=== PATIENT | female | born 1950 | race Caucasian/White ===

== ENCOUNTER 2016-06-02 12:32 | Inpatient (IN) | payer OTHER ==
[~2016-06-02] VITALS: Ht 160 cm; Wt 102.5 kg
[~2016-06-02 12:32] MED LIST: IBUP400T22 PO; MELO-174 PO; METF-382 PO; NAPR-260 PO; OMEP40CA3 PO; SOLI10TA5 PO; ULT50 PO
[2016-06-02] MEDS ORDERED: ONDANSETRON 4 MG INJ IV STA (17:59)
[2016-06-02] MEDS ORDERED: morphine 4 MG/ML VIAL IV STA (17:59)
[2016-06-02] MEDS ORDERED: ACETAMINOPHEN 325 MG TAB PO STA (17:59)
[2016-06-02] MEDS ORDERED: CEFEPIME 2GM/50 ML (PMX) 50 ML IVPB STA (17:59)
[2016-06-02] MEDS ORDERED: VANCOMYCIN 1 GM (PMX) 250 ML IVPB ONE (18:00)
[2016-06-02] MEDS ORDERED: SOD CHLORIDE 0.9% 1,000 ML IV ONE (18:30)
--- NOTE | 2016-06-02 18:32 | RADRPT ---
PROCEDURE: XR Chest. CLINICAL INDICATION: Patient experiencing possible Sepsis TECHNIQUE: Single AP portable chest COMPARISON: 04/24/2014 FINDINGS: Mild cardiomegaly. Tortuosity of the thoracic aorta. Large hiatal hernia. Atherosclerotic aortic ca lcification. The lungs are clear without pleural effusion or focal consolidation. No pneumothorax. The osseous structures and soft tissues are unremarkable. IMPRESSION: Cardiomegaly. Large hiatal hernia. Atherosclerotic disease of the aorta. RPTAT:AAJJ Michael Ureña Physician Date Time Electronically viewed and signed by Physician León on 06/02/2016 18:32 ALESSANDRO/
--- NOTE | 2016-06-02 18:42 | RADRPT ---
PROCEDURE: Ultrasound of the right lower extremity venous system. CLINICAL INDICATION: Right leg pain and swelling, deep venous thrombosis TECHNIQUE: Milan scale with and without compression, color doppler, spectral doppler of the venous system of the right lower extremity was performed. Venous augmentation maneuvers were utilized. COMPARISON: No prior studies are available for comparison. FINDINGS: Common femoral vein: Patent. Superficial femoral vein: Patent. Popliteal vein: Patent. Calf veins: Patent. No soft tissue abnormalities are identified. IMPRESSION: No evidence of a deep vein thrombosis within the right lower extremity. RPTAT: AADD .James Hernández MD, MD Date Time Electronically viewed and signed by .James Hernández MD, on 06/02/2016 18:42 .B/
[2016-06-02 18:43] LABS: BASOPHILS % 0.3 % (0.0-2.0); EOSINOPHILS # 0.1 10^3/ul (0.0-0.5); EOSINOPHILS % 1.4 % (0.0-7.0); HEMATOCRIT 41.1 % (37.0-47.0); HEMOGLOBIN 13.8 g/dl (12.0-16.0); LYMPHOCYTES # 1.6 10^3/ul (0.8-2.9); LYMPHOCYTES % 22.6 % (15.0-51.0); MEAN CORPUSCULAR HEMOGLOBIN 31.7 pg (29.0-33.0); MEAN CORPUSCULAR HGB CONC 33.5 g/dl (32.0-37.0); MEAN CORPUSCULAR VOLUME 94.8 fl (82.0-101.0); MEAN PLATELET VOLUME 7.2 fl (7.4-10.4); MONOCYTE # 0.6 10^3/ul (0.3-0.9); MONOCYTES % 7.9 % (0.0-11.0); NEUTROPHIL # 4.7 10^3/ul (1.6-7.5); NEUTROPHILS % 67.8 % (39.0-77.0); PLATELET COUNT 291 10^3/UL (140-440); RED BLOOD COUNT 4.34 10^6/ul (4.20-5.40); RED CELL DISTRIBUTION WIDTH 13.7 % (11.5-14.5)
[2016-06-02 18:46] LABS: CONDITION 1
[2016-06-02 18:52] LABS: INR 0.93; PROTIME 12.5 Sec (12.2-14.2)
[2016-06-02 18:53] LABS: PARTIAL THROMBOPLASTIN TIME 41.3 Sec (25.0-35.0)
[2016-06-02 18:56] LABS: ALBUMIN 4.5 g/dl (3.3-4.9)
[2016-06-02 18:57] LABS: CHLORIDE 96 mmol/L (97-110); SODIUM 140 mmol/L (135-144)
[2016-06-02 18:59] LABS: ANION GAP 20 (8-16); ASPARTATE AMINO TRANSFERASE 20 IU/L (15-46); BILIRUBIN,INDIRECT 0.1 mg/dl (0-1.1); BILIRUBIN,TOTAL 0.1 mg/dl (0.2-1.3); CARBON DIOXIDE 28 mmol/L (21-31); CREATININE 0.74 mg/dl (0.44-1.00)
[2016-06-02 19:00] LABS: ALANINE AMINOTRANSFERASE 24 IU/L (13-69); ALBUMIN/GLOBULIN RATIO 1.02; ALKALINE PHOSPHATASE 126 IU/L (42-121); BLOOD UREA NITROGEN 12 mg/dl (7-20); CALCIUM 9.4 mg/dl (8.4-10.2); GLUCOSE 160 mg/dl (70-220); TOTAL PROTEIN 8.9 g/dl (6.1-8.1)
[2016-06-02] MEDS ORDERED: IBUP-1542 PO (19:11)
[2016-06-02] MEDS ORDERED: BACTDS PO (19:11)
[2016-06-02] MEDS ORDERED: CALC-780 PO (19:12)
[2016-06-02 19:13] LABS: TROPONIN-I < 0.010 ng/ml (0.00-0.12)
[2016-06-02] MEDS ORDERED: CYCL1DRO BOTH EYES (19:13)
--- NOTE | 2016-06-02 19:20 | ERA ---
ER Documentation Chief Complaint Date/Time DATE: 06/02/16 TIME: 19:15 Chief Complaint bilateral knee pain from a fall 2 mos ago. lower leg redness HPI Patient is a 65-year-old female with diabetes who reports right lower extremity pain with redness and swelling for over a month. She states that she has been on antibiotics for 2 courses without any improvement or resolution of the redness and swelling. She states that she was told by her primary care physician if she took this last round of antibiotics and the redness did not resolve that she needed to come to the emergency department to be hospitalized. She states that her leg is extremely painful to touch and it feels hot. She says she has chills at night but has not taken her temperature. Her blood sugars have not been very well controlled. She says this all started after she fell about 2 months ago but she has not had any recurrent injuries to the leg. She denies any other symptoms such as chest pain, shortness of breath, coughing , congestion, abdominal pain, nausea, vomiting, diarrhea. ROS All systems reviewed and are negative except as per history of present illness. Medications Home Meds Reported Medications Cyclosporine (RESTASIS) 1 Each Droperette, 1 DROP BOTH EYES Q12, #1 BOX 06/02/16 Calcium Carbonate/Vitamin D3 (Calcium 600 + Vit D3 400 Tab) 1 Each Tablet, 1 EACH PO BID, TAB 06/02/16 Sulfamethoxazole-Trimethoprim* (Bactrim* DS) 800-160 Mg Tab, 1 TAB PO BID, #20 TAB 06/02/16 Ibuprofen* (Ibuprofen*) 600 Mg Tablet, 600 MG PO Q6H, TAB 06/02/16 Metformin Hcl* (Metformin Hcl*) 500 Mg Tablet, 500 MG PO BID WITH MEALS, TAB 04/23/14 Omeprazole* (Prilosec*) 40 Mg Capsule.dr, 40 MG PO DAILY AC MEAL, CAP 04/23/14 Solifenacin* (Vesicare*) 10 Mg Tablet, 10 MG PO DAILY, TAB 04/23/14 Discontinued Reported Medications Ibuprofen* (Ibuprofen*) 400 Mg Tablet, 400 MG PO Q4-6 HOURS Y for PAIN, TAB 04/23/14 Meloxicam* (Mobic*) 7.5 Mg Tab, 7.5 MG PO DAILY, TAB 04/23/14 Discontinued Scripts Naproxen* (Naprosyn*) 500 Mg Tablet, 500 MG PO BID Y for PAIN AND/OR INFLAMMATION, #30 TAB Prov:JACQUELYN KINSEY PA-C 04/09/16 Tramadol HCl (Tramadol HCl) 50 Mg Tablet, 50 MG PO Q4 Y for PAIN, #20 TAB Prov:CAROLJACQUELYN Choi PA-C 04/09/16 Allergies Allergies: Coded Allergies: No Known Drug Allergies (Verified Allergy, Unknown, 06/02/16) PMhx/Soc History of Surgery: Yes (, previous knee surgery) Anesthesia Reaction: No Hx Neurological Disorder: No Hx Respiratory Disorders: No Hx Cardiac Disorders: No Hx Psychiatric Problems: No Hx Miscellaneous Medical Probl: No Hx Alcohol Use: No Hx Substance Use: No Hx Tobacco Use: No Smoking Status: Never smoker FmHx Family History: diabetes Physical Exam Vitals Vital Signs Date Time Temp Pulse Resp B/P Pulse Ox O2 Delivery O2 Flow Rate FiO2 06/02/16 12:35 99.9 126 22 117/83 96 Physical Exam Const: Well-developed obese female sitting in the bed in no acute distress Head: Atraumatic normocephalic Eyes: Normal Conjunctiva ENT: Normal External Ears, Nose and Mouth. Neck: Full range of motion..~ No meningismus. Resp: Clear to auscultation bilaterally Cardio: Regular rate and rhythm, no murmurs Abd: Soft, non tender, non distended. Normal bowel sounds Skin: No petechiae or rashes, right lower extremity demonstrates erythema, warmth, and tenderness to palpation consistent with cellulitis. Back: No midline or flank tenderness Ext: No cyanosis, or mild edema of the right lower extremity noted Neur: Awake and alert Psych: Normal Mood and Affect Result Diagram: 06/02/16 1835 06/02/16 183 Results 24 hrs Laboratory Tests Test 06/02/16 18:35 Activated Partial Thromboplast Time 41.3Sec Alanine Aminotransferase (ALT/SGPT) 24IU/L Albumin 4.5g/dl Albumin/Globulin Ratio 1.02 Alkaline Phosphatase 126IU/L Anion Gap 20 Aspartate Amino Transf (AST/SGOT) 20IU/L Basophils # 0.010^3/ul Basophils % 0.3% Blood Morphology Comment Blood Urea Nitrogen 12mg/dl Calcium Level 9.4mg/dl Carbon Dioxide Level 28mmol/L Chloride Level 96mmol/L Creatinine 0.74mg/dl Direct Bilirubin 0.00mg/dl Eosinophils # 0.110^3/ul Eosinophils % 1.4% Globulin 4.40g/dl Glucose Level 160mg/dl Hematocrit 41.1% Hemoglobin 13.8g/dl INR International Normalized Ratio 0.93 Indirect Bilirubin 0.1mg/dl Lactic Acid Level 3.3mmol/L Lymphocytes # 1.610^3/ul Lymphocytes % 22.6% Mean Corpuscular Hemoglobin 31.7pg Mean Corpuscular Hemoglobin Concent 33.5g/dl Mean Corpuscular Volume 94.8fl Mean Platelet Volume 7.2fl Monocytes # 0.610^3/ul Monocytes % 7.9% Neutrophils # 4.710^3/ul Neutrophils % 67.8% Nucleated Red Blood Cells # 0.010^3/ul Nucleated Red Blood Cells % 0.0/100WBC Platelet Count 33674^3/UL Potassium Level 4.0mmol/L Prothrombin Time 12.5Sec Prothrombin Time Ratio 1.0 Red Blood Count 4.3410^6/ul Red Cell Distribution Width 13.7% Sodium Level 140mmol/L Total Bilirubin 0.1mg/dl Total Protein 8.9g/dl Troponin I < 0.010ng/ml White Blood Count 7.010^3/ul Current Medications Medications (Trade) Dose Ordered Sig/[place] Route PRN Reason Start Time Stop Time Status Last Admin Dose Admin Acetaminophen 650 mg 650 mg ONCE STAT PO 06/02/16 17:59 06/02/16 18:03 DC 06/02/16 19:13 Cefepime HCl 50 ml @ 100 mls/hr ONCE STAT IVPB 06/02/16 17:59 06/02/16 18:28 DC 06/02/16 19:04 Vancomycin HCl (Vancocin) 250 ml @ 125 mls/hr ONCE ONCE IVPB 06/02/16 18:00 06/02/16 19:59 DC 06/02/16 19:15 Morphine Sulfate (morphine) 4 mg ONCE STAT IV 06/02/16 17:59 06/02/16 18:03 DC 06/02/16 18:46 Ondansetron HCl 4 mg 4 mg ONCE STAT IV 06/02/16 17:59 06/02/16 18:03 DC 06/02/16 18:45 Sodium Chloride (NS) 1,000 ml @ 1,000 mls/hr Q1H ONCE IV 06/02/16 18:30 06/02/16 19:29 DC 06/02/16 18:52 Diphenhydramine HCl (Benadryl) 25 mg ONCE ONCE IV 06/02/16 19:30 06/02/16 19:31 DC 06/02/16 19:19 Ondansetron HCl (Zofran Inj) 4 mg BRIDGE ORDER PRN IV NAUSEA AND/OR VOMITING 06/02/16 20:00 06/03/16 19:59 Acetaminophen (Tylenol Tab) 650 mg ER BRIDGE PRN PO MILD PAIN/FEVER 06/02/16 20:00 06/03/16 19:59 Procedures/MDM EKG: Rate/Rhythm: Normal Sinus Rhythm at 95 bpm QRS, ST, T-waves: No changes consistent w/ acute ischemia Impression: No evidence of ischemia or arrhythmia 1917: Patient remains hemodynamically stable. She is a diabetic who has failed outpatient treatment for her continued cellulitis of her right lower extremity. I will consult the hospitalist to admit her for IV antibiotic therapy. 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
[2016-06-02] MEDS ORDERED: DIPHENHYDRAMINE 50 MG INJ IV ONE (19:30)
[2016-06-02] MEDS ORDERED: ONDANSETRON 4 MG INJ IV PRN ×2 (20:00→23:30)
[2016-06-02] MEDS ORDERED: ACETAMINOPHEN 325 MG TAB PO PRN ×2 (20:00→23:30)
[2016-06-02] MEDS ORDERED: METHYLPREDNISOLONE 125 MG INJ IV STA (21:37)
[2016-06-02] MEDS ORDERED: EPINEPHrine 1 MG INJ IM STA (21:37)
[2016-06-02 22:15] VITALS: Ht 160 cm; Wt 102.5 kg
[2016-06-02] MEDS ORDERED: GLUCOSE GEL 15 GRAM TUBE PO PRN ×2 (23:30)
[2016-06-02] MEDS ORDERED: NACL 0.9% 3 ML SYG IV SCH (23:30)
[2016-06-02] MEDS ORDERED: ZOLPIDEM 5 MG TAB PO PRN (23:30)
[2016-06-02] MEDS ORDERED: morphine 2 MG INJ IV PRN (23:30)
[2016-06-02] MEDS ORDERED: DOCUSATE SODIUM 100 MG CAP PO PRN (23:30)
[2016-06-02] MEDS ORDERED: VANCOMYCIN IV PER PHARMACY XX SCH (23:30)
[2016-06-02] MEDS ORDERED: GLUCOSE GEL 15 GRAM TUBE BUCCAL PRN (23:30)
[2016-06-02] MEDS ORDERED: GLUCAGON 1 MG INJ IM PRN (23:30)
[2016-06-02] MEDS ORDERED: DEXTROSE 50% 50 ML SYRINGE IV PRN ×2 (23:30)
[2016-06-03] MEDS: INSULIN ASPART [NOVOLOG] 3 ML PEN SC SCH ×5 (00:29→21:00)
[2016-06-03 01:29] VITALS: BP 115/56; RESP 20
[2016-06-03] MEDS: ACCUCHECK XX SCH (02:20)
[2016-06-03] MEDS: VANCOMYCIN 1.25 GM in SOD CHLORIDE 0.9% 250 ML IVPB SCH ×2 (03:05→16:12)
[2016-06-03 06:01] LABS: ADD UMIC YES; URINE BILIRUBIN (Dip) NEGATIVE (NEGATIVE); URINE BLOOD (Dip) NEGATIVE (NEGATIVE); URINE COLOR LT. YELLOW (YELLOW); URINE GLUCOSE (Dip) NEGATIVE (NEGATIVE); URINE KETONES (Dip) NEGATIVE (NEGATIVE); URINE LEUKOCYTE ESTERASE (Dip) 1+ (NEGATIVE); URINE NITRITE (Dip) NEGATIVE (NEGATIVE); URINE TOTAL PROTEIN (Dip) NEGATIVE (NEGATIVE); URINE UROBILINOGEN (Dip) 0.2 E.U./dL (0.1-1.0)
[2016-06-03 06:18] LABS: BACTERIA,URINE OCCASIONAL; SQUAMOUS EPITHELIAL CELL,UR OCCASIONAL; TRANSITIONAL EPI CELLS,URINE OCCASIONAL; URINE RBCS NONE SEEN /HPF (0)
[2016-06-03] MEDS: PANTOPRAZOLE (EC) 40 MG TAB PO SCH (06:36)
[2016-06-03 07:08] LABS: HEMATOCRIT 38.6 % (37.0-47.0); LYMPHOCYTES # 0.6 10^3/ul (0.8-2.9); LYMPHOCYTES % 11.8 % (15.0-51.0); MEAN CORPUSCULAR HEMOGLOBIN 32.1 pg (29.0-33.0); MEAN CORPUSCULAR HGB CONC 33.5 g/dl (32.0-37.0); MEAN CORPUSCULAR VOLUME 95.6 fl (82.0-101.0); MEAN PLATELET VOLUME 7.3 fl (7.4-10.4); MONOCYTE # 0.1 10^3/ul (0.3-0.9); MONOCYTES % 1.3 % (0.0-11.0); NEUTROPHIL # 4.3 10^3/ul (1.6-7.5); NEUTROPHILS % 86.9 % (39.0-77.0); PLATELET COUNT 264 10^3/UL (140-440); RED BLOOD COUNT 4.04 10^6/ul (4.20-5.40); RED CELL DISTRIBUTION WIDTH 13.7 % (11.5-14.5)
[2016-06-03 07:10] LABS: CONDITION 1
[2016-06-03 07:15] LABS: ALBUMIN 3.9 g/dl (3.3-4.9); POTASSIUM 4.6 mmol/L (3.5-5.1)
--- NOTE | 2016-06-03 07:16 | HP ---
DATE OF ADMISSION: 06/02/2016 TIME OF ADMISSION: 11:30 p.m. CHIEF COMPLAINT: Right lower leg pain and redness. HISTORY OF PRESENT ILLNESS: The patient is a 65-year-old female with a history of tdz-[id number]-[id number] dent diabetes. The patient reportedly fell approximately 1 month ago and approximately 1 to 2 weeks ago she developed this right lower extremity redness and swelling. She was given some p.o. antibio tics with Bactrim, but it continued to persist. She continued to have right lower extremity redness and the swelling has improved. She does have some tenderness in that right ankle. Patient has no o ther complaints at this time. The patient's daughter was bedside and provided the majority of the h istory. Apparently the patient is weak in general and her knees tend to buckle, otherwise no acute c omplaints reported. PAST MEDICAL HISTORY: Non-insulin dependent diabetes. PAST SURGICAL HISTORY: , hernia repair and right knee replacement several years ago. HOME MEDICATIONS: 1. Ibuprofen. 2. Bactrim. 3. Calcium. 4. ____ 5. Metformin. 6. Omeprazole. 7. VESIcare. ALLERGIES: NO KNOWN DRUG ALLERGIES. FAMILY HISTORY: Negative. SOCIAL HISTORY: Denies any alcohol, tobacco, or drug abuse. REVIEW OF SYSTEMS: A 12-point review of systems negative except that as mentioned in the HPI. PHYSICAL EXAMINATION: VITAL SIGNS: Temperature is 99.9, pulse 77, respiratory rate is 14, BP is 109/61, saturation 96% on room air. GENERAL: No acute distress, alert and oriented. HEENT: Normocephalic, atraumatic. LUNGS: Clear to auscultation. CARDIOVASCULAR: Regular rate and rhythm. ABDOMEN: Nondistended, nontender, soft. EXTREMITIES: No clubbing, cyanosis, or edema. Erythema noted in the right ankle, but tenderness to palpation is also appreciated. LABORATORIES: White count is 7.0, hemoglobin is 13.8, platelets are 291. Chemistry is within daysi l limits except for chloride of 96, anion gap is 20, lactic acid was 2.3, now down to 2.1. INR is 0 .93. DIAGNOSTICS: Chest x-ray shows cardiomegaly, large hiatal hernia, atherosclerotic disease of the ao rta. Extremity venous study shows no evidence of DVT within the right lower extremity. ASSESSMENT AND PLAN: 1. Cellulitis of the right ankle. The patient has failed outpatient antibiotics with Bactrim. Tim at with vancomycin IV. Monitor. 2. Lactic acidosis, likely secondary to cellulitis, now resolving. 3. History of diabetes. We will continue patient's home metformin. We will treat with a NovoLog s liding scale. 4. Debility with a reported fall. We will get a PT evaluation. 5. Prophylaxis. Lovenox. Dictated By: CHEY PALOMO MD BS/NTS Conf#: [id number] DID#: [id number]
[2016-06-03 07:17] LABS: CREATININE 0.58 mg/dl (0.44-1.00)
[2016-06-03 07:18] LABS: ALBUMIN/GLOBULIN RATIO 1.02; PHOSPHORUS 3.6 mg/dl (2.5-4.9); TOTAL PROTEIN 7.7 g/dl (6.1-8.1)
[2016-06-03 07:19] LABS: CALCIUM 8.9 mg/dl (8.4-10.2); CHOL/HDL RATIO 3.2 RATIO; MAGNESIUM 1.9 mg/dl (1.7-2.5)
[2016-06-03 07:28] VITALS: BP 112/58; RESP 20
[2016-06-03 08:17] VITALS: BP 105/57; RESP 18
[2016-06-03] MEDS: metFORMIN 500 MG TAB PO SCH ×2 (09:24→18:05)
[2016-06-03] MEDS: CALCIUM/VITAMIN D (500/200) TAB PO SCH ×2 (09:24→20:45)
[2016-06-03] MEDS: CYCLOSPORINE 0.05% OPH DROPERETTE BOTH EYES SCH (09:25)
[2016-06-03] MEDS: SOLIFENACIN 5 MG TAB PO SCH (09:25)
[2016-06-03] MEDS: ENOXAPARIN 40 MG/0.4 ML SYG SC SCH (09:27)
--- NOTE | 2016-06-03 10:42 | RADRPT ---
PROCEDURE: XR Right Ankle. CLINICAL INDICATION: Right ankle pain. TECHNIQUE: 3 views. Frontal, lateral, and oblique. COMPARISON: Trauma. Right ankle pain. FINDINGS: There is no fracture or dislocation. There is diffuse soft tissue swelling. There are degenerative changes of the tibiotalar joint with joint space narrowing and osteophytes. There are osteophytes arising from the talonavicular joint. There is a plantar calcaneal spur. There is no lytic or blastic lesion. There is no radiopaque foreign body. IMPRESSION: 1. Degenerative changes. 2. Diffuse soft tissue swelling. 3. No acute abnormality. RPTAT: QQ .Gideon Benito MD, MD Date Time Electronically viewed and signed by .Gideon Benito MD, MD on 06/03/2016 10:42 .R/
--- NOTE | 2016-06-03 15:14 | PN ---
Date/Time of Note Date/Time of Note DATE: 06/03/16 TIME: 15:07 Assessment/Plan VTE Prophylaxis VTE Prophylaxis Intervention: SCD's Lines/Catheters IV Catheter Type (from Nrs): Saline Lock Urinary Cath still in place: No Assessment/Plan Chief Complaint/Hosp Course Assessment and plan 1. Cellulitis right lower extremity. Patient did fail outpatient antibiotic regimen for this issue. We'll get ID consultation continue on antibiotics for now. 2. Lactic acidosis likely secondary to #1. Improved. Will monitor 3. Diabetes. Continue insulin regimen. 4. Reported debility. Physical therapy to follow. Continue for precautions DVT prophylaxis: His Lovenox Disposition and plan: ID consult. Follow-up with recommendations. Continue antibiotics for now. Discussed plan of care with Problems: Subjective 24 Hr Interval Summary Free Text/Dictation reports some pain on right lower extremity Exam/Review of Systems Vital Signs Vitals Vital Signs Date Time Temp Pulse Resp B/P Pulse Ox O2 Delivery O2 Flow Rate FiO2 06/03/16 08:17 98.8 75 18 105/57 96 06/02/16 21:17 Room Air Intake and Output 06/02/16 06/02/16 06/03/16 15:00 23:00 07:00 Intake Total 800 ml Balance 800 ml Exam General: morbidly obese, no s/s of acute distress Eyes: pupils equal round, Anicteric sclera Neck: Supple nontender, no JVD Cardiac: S1, S2 auscultated, regular rhythm and rate Pulmonary: No coarse rhonchi or breathing auscultated GI: Abdomen soft nontender nondistended, bowel sounds active Extremities: BLE edema more notable on right lower extremity Skin: darkish discoloration of right lower extremity Neurologic: Alert to person place and time and situation Results Result Diagram: 06/03/16 0549 06/03/16 0549 Results 24 hrs Laboratory Tests Test 06/02/16 18:35 06/02/16 21:00 06/02/16 23:11 06/02/16 23:17 Activated Partial Thromboplast Time 41.3 H Alanine Aminotransferase (ALT/SGPT) 24 Albumin 4.5 Albumin/Globulin Ratio 1.02 Alkaline Phosphatase 126 H Anion Gap 20 H Aspartate Amino Transf (AST/SGOT) 20 Basophils # 0.0 Basophils % 0.3 Blood Morphology Comment Blood Urea Nitrogen 12 Calcium Level 9.4 Carbon Dioxide Level 28 Chloride Level 96 L Creatinine 0.74 Direct Bilirubin 0.00 Eosinophils # 0.1 Eosinophils % 1.4 Globulin 4.40 H Glucose Level 160 Hematocrit 41.1 Hemoglobin 13.8 INR International Normalized Ratio 0.93 Indirect Bilirubin 0.1 Lactic Acid Level 3.3 H 2.3 H 2.1 Lymphocytes # 1.6 Lymphocytes % 22.6 Mean Corpuscular Hemoglobin 31.7 Mean Corpuscular Hemoglobin Concent 33.5 Mean Corpuscular Volume 94.8 Mean Platelet Volume 7.2 L Monocytes # 0.6 Monocytes % 7.9 Neutrophils # 4.7 Neutrophils % 67.8 Nucleated Red Blood Cells # 0.0 Nucleated Red Blood Cells % 0.0 Platelet Count 291 # Potassium Level 4.0 Prothrombin Time 12.5 Prothrombin Time Ratio 1.0 Red Blood Count 4.34 Red Cell Distribution Width 13.7 Sodium Level 140 Total Bilirubin 0.1 L Total Protein 8.9 H Troponin I < 0.010 White Blood Count 7.0 Bedside Glucose 193 Test 06/03/16 02:20 06/03/16 03:15 06/03/16 05:49 06/03/16 07:44 Bedside Glucose 140 193 Urine Bacteria OCCASIONAL Urine Bilirubin NEGATIVE Urine Clarity CLEAR Urine Color LT. YELLOW Urine Glucose NEGATIVE Urine Hemoglobin NEGATIVE Urine Ketones NEGATIVE Urine Leukocyte Esterase 1+ H Urine Microscopic RBC NONE SEEN Urine Microscopic WBC 5-10 Urine Nitrite NEGATIVE Urine Specific [place] 1.010 Urine Squamous Epithelial Cells OCCASIONAL Urine Total Protein NEGATIVE Urine Transitional Epithelial Cells OCCASIONAL Urine Urobilinogen 0.2 E.U./dL Urine pH 6.5 Alanine Aminotransferase (ALT/SGPT) 19 Albumin 3.9 Albumin/Globulin Ratio 1.02 Alkaline Phosphatase 103 Anion Gap 16 Aspartate Amino Transf (AST/SGOT) 17 Basophils # 0.0 Basophils % 0.0 Blood Morphology Comment Blood Urea Nitrogen 11 Calcium Level 8.9 Carbon Dioxide Level 28 Chloride Level 103 Cholesterol Level 103 Cholesterol/HDL Ratio 3.2 Creatinine 0.58 Direct Bilirubin 0.00 Eosinophils # 0.0 Eosinophils % 0.0 Globulin 3.80 H Glucose Level 151 HDL Cholesterol 32 L Hematocrit 38.6 Hemoglobin 13.0 Hemoglobin A1c 5.8 Indirect Bilirubin 0.0 LDL Cholesterol, Calculated 65 Lymphocytes # 0.6 L Lymphocytes % 11.8 L Magnesium Level 1.9 Mean Corpuscular Hemoglobin 32.1 Mean Corpuscular Hemoglobin Concent 33.5 Mean Corpuscular Volume 95.6 Mean Platelet Volume 7.3 L Monocytes # 0.1 L Monocytes % 1.3 Neutrophils # 4.3 Neutrophils % 86.9 H Nucleated Red Blood Cells # 0.0 Nucleated Red Blood Cells % 0.0 Phosphorus Level 3.6 Platelet Count 264 Potassium Level 4.6 Red Blood Count 4.04 L Red Cell Distribution Width 13.7 Sodium Level 142 Total Bilirubin 0.0 L Total Protein 7.7 # Triglycerides Level 31 White Blood Count 5.0 # Test 06/03/16 12:04 Bedside Glucose 135 Medications Medications Current Medications Ondansetron HCl (Zofran Inj) 4 mg Q6H PRN IV NAUSEA AND/OR VOMITING; Start 06/02 at 23:30 Acetaminophen (Tylenol Tab) 650 mg Q6H PRN PO PAIN LEVEL 1-3 OR FEVER; Start at 23:30 Acetaminophen/ Hydrocodone Bitart ([place] (5/325)) 1 tab Q6H PRN PO MODERATE PAIN LEVEL 4-6; Start 06/02/16 at 23:30 Morphine Sulfate (morphine) 2 mg Q4H PRN IV SEVERE PAIN LEVEL 7-10; Start at 23:30 Docusate Sodium (Colace) 100 mg Q12H PRN PO CONSTIPATION; Start 06/02/16 at 23: 30 Zolpidem Tartrate (Ambien) 5 mg QHS PRN PO SLEEP; Start 06/02/16 at 23:30 Enoxaparin Sodium (Lovenox) 40 mg DAILY SC Last administered on 06/03/16 09:27 ; Admin Dose 40 MG; Start 06/03/16 at 09:00 Diagnostic Test (Pha) (Accucheck) 1 ea 02 XX Last administered on 06/03/16 02: 20; Admin Dose 1 EA; Start 06/03/16 at 02:00 Cyclosporine (Restasis) 1 drop Q12 BOTH EYES Last administered on 06/03/16 09: 25; Admin Dose 1 DROP; Start 06/03/16 at 09:00 Solifenacin (Vesicare) 10 mg DAILY PO Last administered on 06/03/16 09:25; Admin Dose 10 MG; Start 06/03/16 at 09:00 Calcium/Vitamin D (Oyster Shell/ Vit-D (500/200)) 1 tab BID PO Last administered on 06/03/16 09:24; Admin Dose 1 TAB; Start 06/03/16 at 09:00 Miscellaneous Information 1 ea NOTE XX ; Start 06/02/16 at 23:30 Glucose (Glutose) 15 gm Q15M PRN PO DECREASED GLUCOSE; Start 06/02/16 at 23:30 Glucose (Glutose) 22.5 gm Q15M PRN PO DECREASED GLUCOSE; Start 06/02/16 at 23:30 Dextrose (D50w Syringe) 25 ml Q15M PRN IV DECREASED GLUCOSE; Start 06/02/16 at 23:30 Dextrose (D50w Syringe) 50 ml Q15M PRN IV DECREASED GLUCOSE; Start 06/02/16 at 23:30 Glucagon (Glucagen) 1 mg Q15M PRN IM DECREASED GLUCOSE; Start 06/02/16 at 23:30 Glucose 15 gm 15 gm Q15M PRN BUCCAL DECREASED GLUCOSE; Start 06/02/16 at 23:30 Vancomycin HCl/ Sodium Chloride (Vancocin/NS) 250 ml @ 83.333 mls/ hr Q12H IVPB Last administered on 06/03/16 03:05; Admin Dose 83.333 MLS/HR; Start at 03:00 Miscellaneous Information (*Rx Drug Level Order Reminder*) 1 ONCE ONCE XX ; Start 06/04/16 at 14:00; Stop 06/04/16 at 14:01 ELENA CUEVA Jun 03, 2016 15:14
[2016-06-03 20:29] VITALS: BP 126/60; RESP 20
[2016-06-04] MEDS: HYDROCODONE/APAP (5/325) TAB PO PRN ×2 (00:28→21:11)
[2016-06-04] MEDS: CYCLOSPORINE 0.05% OPH DROPERETTE BOTH EYES SCH ×3 (00:28→20:40)
[2016-06-04] MEDS: ACCUCHECK XX SCH (02:00)
[2016-06-04] MEDS: VANCOMYCIN 1.25 GM in SOD CHLORIDE 0.9% 250 ML IVPB SCH ×2 (03:18→15:46)
[2016-06-04] MEDS: PANTOPRAZOLE (EC) 40 MG TAB PO SCH (06:25)
[2016-06-04 06:40] LABS: BASOPHILS % 0.5 % (0.0-2.0); EOSINOPHILS # 0.1 10^3/ul (0.0-0.5); EOSINOPHILS % 2.4 % (0.0-7.0); HEMOGLOBIN 12.4 g/dl (12.0-16.0); LYMPHOCYTES # 1.7 10^3/ul (0.8-2.9); LYMPHOCYTES % 28.8 % (15.0-51.0); MEAN CORPUSCULAR HEMOGLOBIN 32.1 pg (29.0-33.0); MEAN CORPUSCULAR HGB CONC 33.5 g/dl (32.0-37.0); MEAN CORPUSCULAR VOLUME 95.8 fl (82.0-101.0); MEAN PLATELET VOLUME 7.4 fl (7.4-10.4); MONOCYTE # 0.5 10^3/ul (0.3-0.9); MONOCYTES % 8.1 % (0.0-11.0); NEUTROPHIL # 3.6 10^3/ul (1.6-7.5); NEUTROPHILS % 60.2 % (39.0-77.0); PLATELET COUNT 274 10^3/UL (140-440); RED BLOOD COUNT 3.86 10^6/ul (4.20-5.40); RED CELL DISTRIBUTION WIDTH 14.1 % (11.5-14.5); UNCORRECTED WBC 5.9 10^3/ul (4.8-10.8); WHITE BLOOD COUNT 5.9 10^3/ul (4.8-10.8)
[2016-06-04 06:43] LABS: POTASSIUM 4.8 mmol/L (3.5-5.1)
[2016-06-04 06:46] LABS: CREATININE 0.7 mg/dl (0.44-1.00)
[2016-06-04 06:47] LABS: CALCIUM 9.1 mg/dl (8.4-10.2)
[2016-06-04 06:50] LABS: CONDITION 1; LH ANALYZER COMMENTS 1; SUSPECT 1
[2016-06-04 07:51] VITALS: BP 170/90; RESP 18
[2016-06-04 07:54] VITALS: BP 126/77; RESP 16
[2016-06-04] MEDS: INSULIN ASPART [NOVOLOG] 3 ML PEN SC SCH ×4 (08:00→20:45)
[2016-06-04] MEDS: metFORMIN 500 MG TAB PO SCH ×2 (08:03→17:26)
[2016-06-04] MEDS: ENOXAPARIN 40 MG/0.4 ML SYG SC SCH (08:23)
[2016-06-04] MEDS: CALCIUM/VITAMIN D (500/200) TAB PO SCH ×2 (08:24→21:11)
[2016-06-04] MEDS: SOLIFENACIN 5 MG TAB PO SCH (08:27)
--- NOTE | 2016-06-04 14:39 | PN ---
Date/Time of Note Date/Time of Note DATE: 06/04/16 TIME: 14:37 Assessment/Plan VTE Prophylaxis VTE Prophylaxis Intervention: LMWH Lines/Catheters IV [facility] Saline Lock Urinary Cath still in place: No Assessment/Plan Chief Complaint/Hosp Course Assessment and plan 1. Cellulitis right lower extremity. Patient did fail outpatient antibiotic regimen for this issue. ID consult following. cont with ID recs 2. Lactic acidosis likely secondary to #1. Improved. Will monitor 3. Diabetes. Continue insulin regimen. 4. Reported debility. Physical therapy to follow. Continue for precautions DVT prophylaxis: His Lovenox Disposition and plan: ID consult. Follow-up with recommendations. Continue antibiotics for now. Await for clinical improvement of right lower extremity Discussed plan of care with Problems: Subjective 24 Hr Interval Summary Free Text/Dictation no s/s of distress. comfortable at this time Exam/Review of Systems Vital Signs Vitals Vital Signs Date Time Temp Pulse Resp B/P Pulse Ox O2 Delivery O2 Flow Rate FiO2 06/04/16 07:54 97.4 74 16 126/77 94 06/02/16 21:17 Room Air Intake and Output 06/03/16 06/03/16 06/04/16 15:00 23:00 07:00 Intake Total 250 ml 350 ml Balance 250 ml 350 ml Exam General: morbidly obese, no s/s of acute distress Eyes: pupils equal round, Anicteric sclera Neck: Supple nontender, no JVD Cardiac: S1, S2 auscultated, regular rhythm and rate Pulmonary: No coarse rhonchi or breathing auscultated GI: Abdomen soft nontender nondistended, bowel sounds active Extremities: less swelling noted right lower extremity Skin: darkish discoloration of right lower extremity Neurologic: Alert to person place and time and situation Results Result Diagram: 06/04/16 0600 06/04/16 0600 Results 24 hrs Laboratory Tests Test 06/03/16 16:29 06/03/16 20:15 06/04/16 06:00 06/04/16 08:01 Bedside Glucose 106 108 102 Anion Gap 17 H Basophils # 0.0 Basophils % 0.5 Blood Morphology Comment Blood Urea Nitrogen 18 Calcium Level 9.1 Carbon Dioxide Level 28 Chloride Level 102 Creatinine 0.70 Eosinophils # 0.1 Eosinophils % 2.4 Glucose Level 103 # Hematocrit 37.0 Hemoglobin 12.4 Lymphocytes # 1.7 Lymphocytes % 28.8 Mean Corpuscular Hemoglobin 32.1 Mean Corpuscular Hemoglobin Concent 33.5 Mean Corpuscular Volume 95.8 Mean Platelet Volume 7.4 Monocytes # 0.5 Monocytes % 8.1 Neutrophils # 3.6 Neutrophils % 60.2 Nucleated Red Blood Cells # 0.0 Nucleated Red Blood Cells % 0.0 Platelet Count 274 Potassium Level 4.8 Red Blood Count 3.86 L Red Cell Distribution Width 14.1 Sodium Level 142 White Blood Count 5.9 Test 06/04/16 11:36 Bedside Glucose 92 Medications Medications Current Medications Ondansetron HCl (Zofran Inj) 4 mg Q6H PRN IV NAUSEA AND/OR VOMITING; Start 06/02 at 23:30 Acetaminophen (Tylenol Tab) 650 mg Q6H PRN PO PAIN LEVEL 1-3 OR FEVER; Start at 23:30 Acetaminophen/ Hydrocodone Bitart ([place] (5/325)) 1 tab Q6H PRN PO MODERATE PAIN LEVEL 4-6 Last administered on 06/04/16 00:28; Admin Dose 1 TAB; Start 06/02 at 23:30 Morphine Sulfate (morphine) 2 mg Q4H PRN IV SEVERE PAIN LEVEL 7-10; Start at 23:30 Docusate Sodium (Colace) 100 mg Q12H PRN PO CONSTIPATION; Start 06/02/16 at 23: 30 Zolpidem Tartrate (Ambien) 5 mg QHS PRN PO SLEEP; Start 06/02/16 at 23:30 Enoxaparin Sodium (Lovenox) 40 mg DAILY SC Last administered on 06/04/16 08:23 ; Admin Dose 40 MG; Start 06/03/16 at 09:00 Diagnostic Test (Pha) (Accucheck) 1 ea 02 XX Last administered on 06/03/16 02: 20; Admin Dose 1 EA; Start 06/03/16 at 02:00 Cyclosporine (Restasis) 1 drop Q12 BOTH EYES Last administered on 06/04/16 08: 27; Admin Dose 1 DROP; Start 06/03/16 at 09:00 Solifenacin (Vesicare) 10 mg DAILY PO Last administered on 06/04/16 08:27; Admin Dose 10 MG; Start 06/03/16 at 09:00 Calcium/Vitamin D (Oyster Shell/ Vit-D (500/200)) 1 tab BID PO Last administered on 06/04/16 08:24; Admin Dose 1 TAB; Start 06/03/16 at 09:00 Miscellaneous Information 1 ea NOTE XX ; Start 06/02/16 at 23:30 Glucose (Glutose) 15 gm Q15M PRN PO DECREASED GLUCOSE; Start 06/02/16 at 23:30 Glucose (Glutose) 22.5 gm Q15M PRN PO DECREASED GLUCOSE; Start 06/02/16 at 23:30 Dextrose (D50w Syringe) 25 ml Q15M PRN IV DECREASED GLUCOSE; Start 06/02/16 at 23:30 Dextrose (D50w Syringe) 50 ml Q15M PRN IV DECREASED GLUCOSE; Start 06/02/16 at 23:30 Glucagon (Glucagen) 1 mg Q15M PRN IM DECREASED GLUCOSE; Start 06/02/16 at 23:30 Glucose 15 gm 15 gm Q15M PRN BUCCAL DECREASED GLUCOSE; Start 06/02/16 at 23:30 Vancomycin HCl/ Sodium Chloride (Vancocin/NS) 250 ml @ 83.333 mls/ hr Q12H IVPB Last administered on 06/04/16 03:18; Admin Dose 83.333 MLS/HR; Start at 03:00 ELENA UCEVA Jun 04, 2016 14:39
[2016-06-04 20:47] VITALS: BP 116/57; RESP 20
[2016-06-05] MEDS: ACCUCHECK XX SCH (01:40)
[2016-06-05 05:52] LABS: BASOPHILS % 0.4 % (0.0-2.0); EOSINOPHILS # 0.1 10^3/ul (0.0-0.5); EOSINOPHILS % 2.5 % (0.0-7.0); HEMATOCRIT 38.3 % (37.0-47.0); HEMOGLOBIN 12.9 g/dl (12.0-16.0); LYMPHOCYTES # 1.7 10^3/ul (0.8-2.9); MEAN CORPUSCULAR HEMOGLOBIN 31.9 pg (29.0-33.0); MEAN CORPUSCULAR HGB CONC 33.5 g/dl (32.0-37.0); MEAN CORPUSCULAR VOLUME 95.1 fl (82.0-101.0); MEAN PLATELET VOLUME 7.1 fl (7.4-10.4); MONOCYTE # 0.4 10^3/ul (0.3-0.9); MONOCYTES % 7.9 % (0.0-11.0); NEUTROPHIL # 3.1 10^3/ul (1.6-7.5); NEUTROPHILS % 57.2 % (39.0-77.0); PLATELET COUNT 261 10^3/UL (140-440); RED BLOOD COUNT 4.03 10^6/ul (4.20-5.40); UNCORRECTED WBC 5.4 10^3/ul (4.8-10.8); WHITE BLOOD COUNT 5.4 10^3/ul (4.8-10.8)
[2016-06-05 05:59] LABS: CONDITION 1
[2016-06-05 06:11] LABS: POTASSIUM 4.2 mmol/L (3.5-5.1)
[2016-06-05 06:13] LABS: CREATININE 0.61 mg/dl (0.44-1.00)
[2016-06-05 06:14] LABS: CALCIUM 8.8 mg/dl (8.4-10.2)
[2016-06-05] MEDS: PANTOPRAZOLE (EC) 40 MG TAB PO SCH (06:16)
[2016-06-05 07:25] VITALS: BP 114/56; RESP 16
[2016-06-05] MEDS: INSULIN ASPART [NOVOLOG] 3 ML PEN SC SCH ×4 (08:00→20:36)
[2016-06-05] MEDS: ENOXAPARIN 40 MG/0.4 ML SYG SC SCH (08:42)
[2016-06-05] MEDS: VANCOMYCIN 750 MG in SOD CHLORIDE 0.9% 150 ML IVPB SCH ×2 (08:43→20:31)
[2016-06-05] MEDS: metFORMIN 500 MG TAB PO SCH ×2 (08:43→17:16)
[2016-06-05] MEDS: SOLIFENACIN 5 MG TAB PO SCH (08:43)
[2016-06-05] MEDS: CALCIUM/VITAMIN D (500/200) TAB PO SCH ×2 (08:43→20:26)
[2016-06-05] MEDS: CYCLOSPORINE 0.05% OPH DROPERETTE BOTH EYES SCH ×2 (12:17→20:26)
--- NOTE | 2016-06-05 13:44 | PN ---
Date/Time of Note Date/Time of Note DATE: 06/05/16 TIME: 13:42 Assessment/Plan VTE Prophylaxis VTE Prophylaxis Intervention: LMWH Lines/Catheters IV Catheter Type (from [facility]): [facility] Urinary Cath still in place: No Assessment/Plan Chief Complaint/Hosp Course Assessment and plan 1. Cellulitis right lower extremity. Patient did fail outpatient antibiotic regimen for this issue. ID consult to follow. cont on abx. 2. Lactic acidosis likely secondary to #1. Improved. Will monitor 3. Diabetes. Continue insulin regimen. 4. Reported debility. Physical therapy to follow. Continue for precautions DVT prophylaxis: His Lovenox Disposition and plan: await ID consult input. cont abx for now. analgesics as needed. d/c when medically stable and cleared by consultants Discussed plan of care with Problems: Subjective 24 Hr Interval Summary Free Text/Dictation still states she has pain in right lower extremity. is noted to be less erythematous but still swollen Exam/Review of Systems Vital Signs Vitals Vital Signs Date Time Temp Pulse Resp B/P Pulse Ox O2 Delivery O2 Flow Rate FiO2 06/05/16 07:25 97.7 69 16 114/56 94 06/02/16 21:17 Room Air Intake and Output 06/04/16 06/04/16 06/05/16 15:00 23:00 07:00 Intake Total 929.99 ml 700 ml Balance 929.99 ml 700 ml Exam General: morbidly obese, no s/s of acute distress Eyes: pupils equal round, Anicteric sclera Neck: Supple nontender, no JVD Cardiac: S1, S2 auscultated, regular rhythm and rate Pulmonary: No coarse rhonchi or breathing auscultated GI: Abdomen soft nontender nondistended, bowel sounds active Extremities: less swelling noted right lower extremity Skin: darkish discoloration of right lower extremity Neurologic: Alert to person place and time and situation Results Result Diagram: 06/05/16 0455 06/05/16 0455 Results 24 hrs Laboratory Tests Test 06/04/16 14:00 06/04/16 17:27 06/04/16 20:44 06/05/16 04:55 Vancomycin Level Trough 17.1 Bedside Glucose 114 131 Anion Gap 17 H Basophils # 0.0 Basophils % 0.4 Blood Morphology Comment Blood Urea Nitrogen 15 Calcium Level 8.8 Carbon Dioxide Level 28 Chloride Level 100 Creatinine 0.61 Eosinophils # 0.1 Eosinophils % 2.5 Glucose Level 82 Hematocrit 38.3 Hemoglobin 12.9 Lymphocytes # 1.7 Lymphocytes % 32.0 Mean Corpuscular Hemoglobin 31.9 Mean Corpuscular Hemoglobin Concent 33.5 Mean Corpuscular Volume 95.1 Mean Platelet Volume 7.1 L Monocytes # 0.4 Monocytes % 7.9 Neutrophils # 3.1 Neutrophils % 57.2 Nucleated Red Blood Cells # 0.0 Nucleated Red Blood Cells % 0.0 Platelet Count 261 Potassium Level 4.2 Red Blood Count 4.03 L Red Cell Distribution Width 14.0 Sodium Level 141 White Blood Count 5.4 Test 06/05/16 07:54 06/05/16 11:31 Bedside Glucose 87 105 Medications Medications Current Medications Ondansetron HCl (Zofran Inj) 4 mg Q6H PRN IV NAUSEA AND/OR VOMITING; Start 06/02 at 23:30 Acetaminophen (Tylenol Tab) 650 mg Q6H PRN PO PAIN LEVEL 1-3 OR FEVER; Start at 23:30 Acetaminophen/ Hydrocodone Bitart ([place] (5/325)) 1 tab Q6H PRN PO MODERATE PAIN LEVEL 4-6 Last administered on 06/04/16 21:11; Admin Dose 1 TAB; Start 06/02 at 23:30 Morphine Sulfate (morphine) 2 mg Q4H PRN IV SEVERE PAIN LEVEL 7-10; Start at 23:30 Docusate Sodium (Colace) 100 mg Q12H PRN PO CONSTIPATION; Start 06/02/16 at 23: 30 Zolpidem Tartrate (Ambien) 5 mg QHS PRN PO SLEEP; Start 06/02/16 at 23:30 Enoxaparin Sodium (Lovenox) 40 mg DAILY SC Last administered on 06/05/16 08:42 ; Admin Dose 40 MG; Start 06/03/16 at 09:00 Diagnostic Test (Pha) (Accucheck) 1 ea 02 XX Last administered on 06/03/16 02: 20; Admin Dose 1 EA; Start 06/03/16 at 02:00 Cyclosporine (Restasis) 1 drop Q12 BOTH EYES Last administered on 06/05/16 12: 17; Admin Dose 1 DROP; Start 06/03/16 at 09:00 Solifenacin (Vesicare) 10 mg DAILY PO Last administered on 06/05/16 08:43; Admin Dose 10 MG; Start 06/03/16 at 09:00 Calcium/Vitamin D (Oyster [place]/ Vit-D (500/200)) 1 tab BID PO Last administered on 06/05/16 08:43; Admin Dose 1 TAB; Start 06/03/16 at 09:00 Miscellaneous Information 1 ea NOTE XX ; Start 06/02/16 at 23:30 Glucose (Glutose) 15 gm Q15M PRN PO DECREASED GLUCOSE; Start 06/02/16 at 23:30 Glucose (Glutose) 22.5 gm Q15M PRN PO DECREASED GLUCOSE; Start 06/02/16 at 23:30 Dextrose (D50w Syringe) 25 ml Q15M PRN IV DECREASED GLUCOSE; Start 06/02/16 at 23:30 Dextrose (D50w Syringe) 50 ml Q15M PRN IV DECREASED GLUCOSE; Start 06/02/16 at 23:30 Glucagon (Glucagen) 1 mg Q15M PRN IM DECREASED GLUCOSE; Start 06/02/16 at 23:30 Glucose 15 gm 15 gm Q15M PRN BUCCAL DECREASED GLUCOSE; Start 06/02/16 at 23:30 Vancomycin HCl/ Sodium Chloride (Vancocin/NS) 150 ml @ 75 mls/hr Q12 IVPB Last administered on 06/05/16 08:43; Admin Dose 75 MLS/HR; Start 06/05/16 at 09: 00 ELENA CUEVA Jun 05, 2016 13:44
[2016-06-05 19:57] VITALS: BP 112/55; RESP 16
[2016-06-06] MEDS: ACCUCHECK XX SCH (02:00)
[2016-06-06 05:11] LABS: BASOPHILS % 0.5 % (0.0-2.0); EOSINOPHILS # 0.1 10^3/ul (0.0-0.5); EOSINOPHILS % 2.5 % (0.0-7.0); HEMATOCRIT 37.9 % (37.0-47.0); HEMOGLOBIN 12.7 g/dl (12.0-16.0); LYMPHOCYTES # 1.5 10^3/ul (0.8-2.9); LYMPHOCYTES % 25.6 % (15.0-51.0); MEAN CORPUSCULAR HEMOGLOBIN 31.7 pg (29.0-33.0); MEAN CORPUSCULAR HGB CONC 33.4 g/dl (32.0-37.0); MEAN CORPUSCULAR VOLUME 94.9 fl (82.0-101.0); MEAN PLATELET VOLUME 7.2 fl (7.4-10.4); MONOCYTE # 0.4 10^3/ul (0.3-0.9); MONOCYTES % 7.4 % (0.0-11.0); NEUTROPHIL # 3.8 10^3/ul (1.6-7.5); PLATELET COUNT 265 10^3/UL (140-440); RED CELL DISTRIBUTION WIDTH 13.5 % (11.5-14.5); UNCORRECTED WBC 5.9 10^3/ul (4.8-10.8); WHITE BLOOD COUNT 5.9 10^3/ul (4.8-10.8)
[2016-06-06 05:25] LABS: POTASSIUM 4.3 mmol/L (3.5-5.1)
[2016-06-06 05:27] LABS: CREATININE 0.59 mg/dl (0.44-1.00)
[2016-06-06 05:28] LABS: CALCIUM 9.1 mg/dl (8.4-10.2)
[2016-06-06 05:33] LABS: CONDITION 1
[2016-06-06] MEDS: PANTOPRAZOLE (EC) 40 MG TAB PO SCH (06:18)
[2016-06-06] MEDS: INSULIN ASPART [NOVOLOG] 3 ML PEN SC SCH ×2 (07:49→11:24)
[2016-06-06] MEDS: SOLIFENACIN 5 MG TAB PO SCH (08:02)
[2016-06-06] MEDS: CALCIUM/VITAMIN D (500/200) TAB PO SCH (08:02)
[2016-06-06] MEDS: metFORMIN 500 MG TAB PO SCH (08:02)
[2016-06-06] MEDS: CYCLOSPORINE 0.05% OPH DROPERETTE BOTH EYES SCH (08:03)
[2016-06-06] MEDS: VANCOMYCIN 750 MG in SOD CHLORIDE 0.9% 150 ML IVPB SCH (08:03)
[2016-06-06] MEDS: ENOXAPARIN 40 MG/0.4 ML SYG SC SCH (08:08)
[2016-06-06 10:04] VITALS: BP 115/69; PULSE 69; RESP 18
--- NOTE | 2016-06-06 13:23 | PDOCDIS ---
Discharge Instructions DIAGNOSIS Discharge Diagnosis: 1. right lower extremity cellulitis 2. morbid obesity 3. type 2 diabetes HOME CARE INSTRUCTIONS: Special Diet: carb controlled FOLLOW UP/APPOINTMENTS Appointments 1. Follow up with your primary care provider in 2 weeks ELENA CUEVA Jun 06, 2016 13:23
[2016-06-06] MEDS ORDERED: DOXY-220 PO (13:25)
[2016-06-06] MEDS ORDERED: ULT50 PO (13:25)
--- NOTE | 2016-06-06 14:51 | DS ---
Date/Time of Note Date/Time of Note DATE: 06/06/16 TIME: 14:47 Discharge Summary Admission/Discharge Info Admit Date/Time Jun 02, 2016 at 19:36 Discharge Date/Time Final Diagnosis 1. Cellulitis right lower extremity. 2. Lactic acidosis likely secondary to #1. 3. Diabetes. 4. Reported debility. 5. Morbid obesity Hospital Course This is a 65-year-old female with history of duu-gwxcwhe-buyvrvgwy diabetes who reportedly fell approximately 1 month ago and started to develop right lower extremity redness and swelling 1-2 weeks ago. It was reported she was given by mouth antibiotics with Bactrim at home but her symptoms continued to persist. She did have right lower extremity redness and swelling that did slightly improve. She did go to [facility] due to its un-resolution. Patient did have right ankle x-ray that did show degenerative changes and diffuse soft tissue swelling. She also did have a ultrasound of the right lower extremity that was negative for any DVT. Patient was placed on IV antibiotics and her swelling did improve. She was also seen by ID consult who did help with antibiotic regimen. Initially patient did have some lactic acidosis and this is likely secondary to her cellulitis of her right lower extremity. This did resolve. During the course of stay she did improve. She was otherwise optimized medically. She was continue on insulin for her diabetes. We did have physical therapy follow the patient for her difficulty with ambulation and she was able time. On the day of her discharge. Patient was noted to be morbidly obese for which she was advised for weight reduction. The plan of care was discussed with the patient and patient did verbalize understanding. On the day of discharge patient was in stable condition Discussed plan of care with Disposition: home Home Meds Active Scripts Tramadol HCl (Tramadol HCl) 50 Mg Tablet, 50 MG PO Q6H Y for PAIN, #30 TAB Prov:ELENA CUEVA 06/06/16 Doxycycline Monohydrate* (Doxycycline Monohydrate*) 100 Mg Tablet, 100 MG PO BID for 7 Days, TAB Prov:ELENA CUEVA 06/06/16 Reported Medications Cyclosporine (RESTASIS) 1 Each Drope[place], 1 DROP BOTH EYES Q12, #1 BOX 06/02/16 Calcium Carbonate/Vitamin D3 (Calcium 600 + Vit D3 400 Tab) 1 Each Tablet, 1 EACH PO BID, TAB 06/02/16 Ibuprofen* (Ibuprofen*) 600 Mg Tablet, 600 MG PO Q6H, TAB 06/02/16 Metformin Hcl* (Metformin Hcl*) 500 Mg Tablet, 500 MG PO BID WITH MEALS, TAB 04/23/14 Omeprazole* (Prilosec*) 40 Mg Capsule.dr, 40 MG PO DAILY AC MEAL, CAP 04/23/14 Solifenacin* (Vesicare*) 10 Mg Tablet, 10 MG PO DAILY, TAB 04/23/14 Discontinued Reported Medications Sulfamethoxazole-Trimethoprim* (Bactrim* DS) 800-160 Mg Tab, 1 TAB PO BID, #20 TAB 06/02/16 Ibuprofen* (Ibuprofen*) 400 Mg Tablet, 400 MG PO Q4-6 HOURS Y for PAIN, TAB 04/23/14 Meloxicam* (Mobic*) 7.5 Mg Tab, 7.5 MG PO DAILY, TAB 04/23/14 Discontinued Scripts Naproxen* (Naprosyn*) 500 Mg Tablet, 500 MG PO BID Y for PAIN AND/OR INFLAMMATION, #30 TAB Prov:JACQUELYN KINSEY PA-C 04/09/16 Tramadol HCl (Tramadol HCl) 50 Mg Tablet, 50 MG PO Q4 Y for PAIN, #20 TAB Prov:JACQUELYN KINSEY PA-C 04/09/16 Follow-up Plan HOME CARE INSTRUCTIONS: Special Diet: carb controlled FOLLOW UP/APPOINTMENTS Appointments 1. Follow up with your primary care provider in 2 weeks Pending Labs Laboratory Tests Test 06/05/16 16:39 06/05/16 20:30 06/06/16 04:30 06/06/16 07:22 Bedside Glucose 88mg/dL (70-220) 103mg/dL (70-220) 96mg/dL (70-220) Anion Gap 16 (8-16) Basophils # 0.010^3/ul (0.0-0.1) Basophils % 0.5% (0.0-2.0) Blood Morphology Comment Blood Urea Nitrogen 14mg/dl (7-20) Calcium Level 9.1mg/dl (8.4-10.2) Carbon Dioxide Level 31mmol/L (21-31) Chloride Level 100mmol/L (97-110) Creatinine 0.59mg/dl (0.44-1.00) Eosinophils # 0.110^3/ul (0.0-0.5) Eosinophils % 2.5% (0.0-7.0) Glucose Level 92mg/dl (70-220) Hematocrit 37.9% (37.0-47.0) Hemoglobin 12.7g/dl (12.0-16.0) Lymphocytes # 1.510^3/ul (0.8-2.9) Lymphocytes % 25.6% (15.0-51.0) Mean Corpuscular Hemoglobin 31.7pg (29.0-33.0) Mean Corpuscular Hemoglobin Concent 33.4g/dl (32.0-37.0) Mean Corpuscular Volume 94.9fl (82.0-101.0) Mean Platelet Volume 7.2fl (7.4-10.4) Monocytes # 0.410^3/ul (0.3-0.9) Monocytes % 7.4% (0.0-11.0) Neutrophils # 3.810^3/ul (1.6-7.5) Neutrophils % 64.0% (39.0-77.0) Nucleated Red Blood Cells # 0.010^3/ul (0.0-0.0) Nucleated Red Blood Cells % 0.0/100WBC (0.0-0.0) Platelet Count 50619^3/UL (140-440) Potassium Level 4.3mmol/L (3.5-5.1) Red Blood Count 4.0010^6/ul (4.20-5.40) Red Cell Distribution Width 13.5% (11.5-14.5) Sodium Level 143mmol/L (135-144) White Blood Count 5.910^3/ul (4.8-10.8) Test 06/06/16 11:23 Bedside Glucose 84mg/dL (70-220) Microbiology Date/Time Source Procedure Growth Status 06/05/16 15:45 Feces Clostridium difficile Toxin Assay - Final Complete 06/05/16 15:45 Feces Stool Culture - Preliminary Coliform Resulted ELENA CUEVA Jun 06, 2016 14:50
--- NOTE | 2016-06-06 16:03 | PN ---
DATE: 06/06/2016 SUBJECTIVE: No acute changes overnight. The patient is alert, sitting up in a chair. Looks comfor table, denies pain, no fevers. WBC 5.9, no shift, no bands. BUN 14, creatinine 0.59. ANTIMICROBIALS: The patient is on IV vancomycin, status post dose of Cefepime. PHYSICAL EXAMINATION: GENERAL: This is a morbidly obese, elderly woman who is alert, in no distress. HEENT: Head atraumatic, normocephalic. Sclerae anicteric. Buccal mucosa dry. NECK: Supple. CHEST: Rise symmetrical. Breath sounds clear, diminished to bases. HEART: S1, S2. ABDOMEN: Soft, bowel tones present. EXTREMITIES: No cyanosis. Bilateral lower extremities. Chronic venous stasis with right lower ext remity, more edema on this side than left but no evidence of infectious process. ASSESSMENT: 1. Right lower extremity, resolved cellulitis with chronic edema. 2. Diabetes. 3. Morbid obesity. 4. History of right total knee replacement. 5. Status post coagulase-negative staph bacteremia consistent with contaminant. PLAN: The patient remains stable, okay to discharge home on oral doxycycline or Bactrim from infec tious disease standpoint. The patient to follow with podiatry as an outpatient for further manageme nt. Keep right lower extremity elevated. Dictated By: CLARISSA MCCARTY WRECKER OPERATOR for [facility]IZABETH BECK/NTS Conf#: [id number] DID#: [id number]
== END 2016-06-06 15:52 | disposition home or self-care (01) | DRG 603 ==
LOC: E/R 12:32 → PP2 19:36
PROVIDERS: ADMIT Internal Medicine; ATTEND Internal Medicine
DX: L03.115 Cellulitis of right lower limb (principal); E87.2 Acidosis; Z68.41 Body mass index [BMI] 40.0-44.9, adult; E11.9 Type 2 diabetes mellitus without complications; R53.81 Other malaise; E66.01 Morbid (severe) obesity due to excess calories; Z79.84 Long term (current) use of oral hypoglycemic drugs
CPT/HCPCS: 36415; 71010; 73600; 80048; 80053; 80061; 80202; 81001; 81003; 82962; 83036; 83605; 83735; 84100; 84484; 85025; 85610; 85730; 87040; 87045; 87075; 87086; 93005; 93971; 96372; 96374; 96375; 97162; J0171; J1200; J1650; J1815; J2270; J2405; J2930; J3370; J7030; J7050

== ENCOUNTER 2017-03-10 12:56 | Inpatient (IN) | payer OTHER ==
[~2017-03-10] VITALS: Ht 165.1 cm; Wt 87.1 kg
[~2017-03-10 12:56] MED LIST changes: +CALC-780 PO; +CYCL1DRO BOTH EYES; +DOXY-220 PO; +IBUP-1542 PO; -IBUP400T22 PO; -MELO-174 PO; -METF-382 PO; +METF500T4 PO; -NAPR-260 PO; +TRAM50TA2 PO; -ULT50 PO
[2017-03-10 13:08] VITALS: Ht 165.1 cm; Wt 87.1 kg
[2017-03-10 13:30] VITALS: TEMP 97.8
[2017-03-10] MEDS ORDERED: SOD CHLORIDE 0.9% 500 ML IV STA (13:51)
[2017-03-10] MEDS ORDERED: KETOROLAC 15 MG INJ IV STA (13:51)
[2017-03-10 14:05] LABS: BASOPHILS % 0.4 % (0.0-2.0); EOSINOPHILS # 0.1 10^3/ul (0.0-0.5); EOSINOPHILS % 1.7 % (0.0-7.0); HEMATOCRIT 37.8 % (37.0-47.0); HEMOGLOBIN 11.6 g/dl (12.0-16.0); LYMPHOCYTES # 2.4 10^3/ul (0.8-2.9); LYMPHOCYTES % 31.8 % (15.0-51.0); MEAN CORPUSCULAR HEMOGLOBIN 29.7 pg (29.0-33.0); MEAN CORPUSCULAR HGB CONC 30.7 g/dl (32.0-37.0); MEAN CORPUSCULAR VOLUME 96.9 fl (82.0-101.0); MEAN PLATELET VOLUME 8.4 fl (7.4-10.4); MONOCYTE # 0.6 10^3/ul (0.3-0.9); NEUTROPHIL # 4.4 10^3/ul (1.6-7.5); NEUTROPHILS % 57.8 % (39.0-77.0); PLATELET COUNT 474 10^3/UL (140-415); RED CELL DISTRIBUTION WIDTH 16.4 % (11.5-14.5); WHITE BLOOD COUNT 7.6 10^3/ul (4.8-10.8)
[2017-03-10] MEDS ORDERED: CYAN100 PO (14:08)
[2017-03-10] MEDS ORDERED: ACET-141 PO (14:09)
[2017-03-10] MEDS ORDERED: METO-448 PO (14:09)
[2017-03-10 14:14] LABS: ALBUMIN 3.6 g/dl (3.3-4.9); ALBUMIN/GLOBULIN RATIO 0.8; BILIRUBIN,INDIRECT 0.2 mg/dl (0-1.1); BILIRUBIN,TOTAL 0.2 mg/dl (0.2-1.3); CALCIUM 8.8 mg/dl (8.4-10.2); CREATININE 0.64 mg/dl (0.44-1.00); TOTAL PROTEIN 8.1 g/dl (6.1-8.1)
[2017-03-10 14:19] LABS: ADD UMIC YES; UR ASCORBIC ACID NEGATIVE (NEGATIVE); UR BILIRUBIN (Dip) NEGATIVE (NEGATIVE); UR BLOOD (Dip) NEGATIVE (NEGATIVE); UR CLARITY SLIGHTLY CLOUDY (CLEAR); UR COLOR YELLOW (YELLOW); UR GLUCOSE (Dip) NEGATIVE (NEGATIVE); UR KETONES (Dip) NEGATIVE (NEGATIVE); UR LEUKOCYTE ESTERASE (Dip) 2+ Leu/ul (NEGATIVE); UR MUCUS FEW /HPF (NONE SEEN); UR NITRITE (Dip) NEGATIVE (NEGATIVE); UR RBC 4 /HPF (0-5); UR SPECIFIC GRAVITY (Dip) 1.009 (1.003-1.030); UR TOTAL PROTEIN (Dip) NEGATIVE (NEGATIVE); UR UROBILINOGEN (Dip) NEGATIVE (NEGATIVE)
[2017-03-10] MEDS ORDERED: IOHEXOL 300MG/ML 150 ML BTL ONE ×2 (14:24→16:37)
[2017-03-10] MEDS ORDERED: SOD CHLORIDE 0.9% 100 ML ONE ×2 (14:24→16:37)
--- NOTE | 2017-03-10 15:30 | RADRPT ---
PROCEDURE: CT Abdomen and Pelvis with intravenous contrast. CLINICAL INDICATION: Abdominal pain.. TECHNIQUE: CT scan of the abdomen and pelvis with intravenous contrast was performed on the multi- slice CT scanner. The patient was scanned following the uncomplicated intravenous administration of 100 cc of Omnipaque-300 contrast. Coronal and sagittal reformatted images were obtained from the a xial source images. Images were reviewed on a high-resolution PACS workstation. Total DLP = 1072.3 mGy-cm. CTDIvol = 21.9 mGy. One or more of the following dose reduction techniques were used: Automated exposure control. Adjustment of the mA and/or kV according to patient size. Use of iterative reconstruction technique. COMPARISON: 04/23/2014 FINDINGS: CT abdomen and pelvis: The lung bases are remarkable for bibasilar atelectasis and scarring. There are trace bilateral pleu ral effusions. There is a questionable filling defects seen within a pulmonary vessel on initial meredith ge. Cannot exclude pulmonary emboli. There is a large hiatal hernia present with most of the stomach within the hernia sac. There are postsurgical changes and clips around the herniated stomach. The heart size is normal in size. The liver is normal in size and fatty in density without focal mass o r intrahepatic biliary dilatation. The spleen is normal in size and homogeneous in density. The p ancreas appears atrophic.. The gallbladder is distended without definite stones or wall thickening. Slight dilatation of the common bile duct and pancreatic duct near the pancreatic head is seen. The re is no evidence of choledocholithiasis or pancreatic head mass.. The adrenal glands are normal. The kidneys are symmetrically unremarkable. No urolithiasis, obstructive uropathy, or solid mass lesion is seen. The small bowels are nondistended. Postsurgical bowel sutures seen around the duodenum and left abdo [place] small bowel loops.. The colon and rectum are normal. There is mild retained feces in the cecum .. No evidence of acute appendicitis or diverticulitis. The pelvic organs are normal. The bladder i s normal. The The aorta is normal in caliber and course. The osseous structures show degenerative enthesopathy of the spine. No osteolytic or osteoblastic lesions are identified. Post surgical scar is seen along the midline abdomen.. IMPRESSION: 1. Large hiatal hernia with most of the stomach in the thoracic cavity. Postsurgical changes are se en around the hiatal hernia, duodenum and left abdominal small bowel loops. 2. Questionable filling defect seen in the right hilar pulmonary vessel on first image of the study and incompletely evaluated.. If pulmonary emboli is clinically suspected, CT pulmonary angiogram is advised. 3. Mild bibasilar atelectasis, scarring, and trace bilateral pleural effusions. 4. Hepatic steatosis. 5. Atrophic pancreas with mild dilatation of the pancreatic duct and common bile duct near the panc reatic head. 6. Postsurgical scar along the anterior abdominal wall. RPTAT: Call report: A call report of the findings was made to Dr. ZAMBRANO on 03/10/2017 3:27:14 PM. .Enoch Vasquez MD, MD Date Time Electronically viewed and signed by .Enoch Vasquez MD, on 03/10/2017 15:30 .L/
--- NOTE | 2017-03-10 17:15 | RADRPT ---
PROCEDURE: CTA Chest. CLINICAL INDICATION: Pulmonary embolism . Tachycardia. TECHNIQUE: The study was performed utilizing a multidetector CT scanner. Direct spiral 1 mm axial sections were obtained from the thoracic inlet to the upper abdomen with the use of 100 cc of Omnip aque 350 nonionic intravenous contrast material and reformatted at 3 mm. Coronal, sagittal and 3-D a ngiographic reformations were obtained. The images were reviewed on a PACS workstation. CT D I 35 mCi Dose 510 mGy/cm Individualized dose optimization technique was used for the performance of this exam. This included 1. Automated exposure control. 2. Adjustment of the mA and / or kV according to the patient's size. 3. Use of iterative reconstruction technique. COMPARISON: CT abdomen pelvis March 10, 2017. FINDINGS: Noted is a saddle embolism extending into both right and left main pulmonary arteries. There is only mild compromise of these vessels. There is partially occlusive thrombus noted in the first and seco nd order branches of the right upper lobe, middle lobe and lower lobe pulmonary arteries and in a fi rst order branch of the left upper lobe pulmonary artery. The main pulmonary artery measures 3.7 cm in diameter. This is compatible with pulmonary hypertension. Thoracic aorta is without evidence of a neurysm or dissection. No hilar or mediastinal adenopathy or mass is present. There is a large hiata l hernia. Tiny right pleural effusion is seen. There is cardiomegaly. There is atelectasis at the rodger ng bases. No alveolar infiltrate is present. There is a 2.2 x 1.3 cm pleural-based mass like density on the dorsal aspect of the right upper lobe likely representing round atelectasis. No pneumothorax is identified. Noted is enlarged fatty liver. No upper abdominal or adrenal mass is visualized. The osseous structures appear normal. IMPRESSION: Saddle embolism with bilateral pulmonary emboli as above. No aortic dissection or aneurysm. Bibasilar atelectasis. Presumed right upper lobe round atelectasis. Follow-up is recommended. Small right pleural effusion. Hiatal hernia. Enlarged fatty liver. .Frederic Antunez MD, MD Date Time Electronically viewed and signed by .Frederic Antunez MD, on 03/10/2017 17:15 .Maricel/
--- NOTE | 2017-03-10 17:34 | ERA ---
ER Documentation Chief Complaint Date/Time DATE: 03/10/17 TIME: 17:32 Chief Complaint Complains of palpitations x 3 days HPI 66-year-old female history of diabetes and hypertension, status post recent laparotomy and gastric resection for incarcerated hernia and mesenteric ischemia was in rehabilitation until 5 days ago when she was discharged home presents to the ED complaining of ongoing, uncontrolled hypertension and tachycardia since arriving home. Postprandial vomiting. Denies diarrhea or constipation. No dysuria or polyuria. Denies leg pain or swelling. No shortness of breath for the last 3 days has had moderate, nonradiating, crampy lower back pain. No focal weakness or numbness. No urinary or fecal incontinence. Denies dysuria, polyuria or hematuria. Denies chest pain or palpitations. Moderate, generalized, nonradiating abdominal pain with nausea and consistent postprandial vomiting. No relieving or exacerbating factors. No fevers or chills. ROS All systems reviewed and are negative except as per history of present illness. Medications Home Meds Reported Medications Acetaminophen* (Acetaminophen*) 500 MG Extra Strength Tablet, 1000 MG PO Q6H Y for PAIN AND OR ELEVATED TEMP, TAB 03/10/17 Metoprolol Tartrate* (Lopressor*) 25 Mg Tab, 12.5 MG PO BID, #60 TAB 03/10/17 Cyanocobalamin* (Vitamin B12*) 100 Mcg Tab, 100 MCG PO DAILY, TAB 03/10/17 Omeprazole* (Prilosec*) 40 Mg Capsule.dr, 40 MG PO DAILY AC MEAL, CAP 04/23/14 Discontinued Reported Medications Cyclosporine (RESTASIS) 1 Each Droperette, 1 DROP BOTH EYES Q12, #1 BOX 06/02/16 Calcium Carbonate/Vitamin D3 (Calcium 600 + Vit D3 400 Tab) 1 Each Tablet, 1 EACH PO BID, TAB 06/02/16 Ibuprofen* (Ibuprofen*) 600 Mg Tablet, 600 MG PO Q6H, TAB 06/02/16 Metformin Hcl* (Metformin Hcl*) 500 Mg Tablet, 500 MG PO BID WITH MEALS, TAB 04/23/14 Solifenacin* (Vesicare*) 10 Mg Tablet, 10 MG PO DAILY, TAB 04/23/14 Discontinued Scripts Tramadol HCl (Tramadol HCl) 50 Mg Tablet, 50 MG PO Q6H Y for PAIN, #30 TAB Prov:ELENA CUEVA 06/06/16 Doxycycline Monohydrate* (Doxycycline Monohydrate*) 100 Mg Tablet, 100 MG PO BID for 7 Days, TAB Prov:ELENA CUEVA 06/06/16 Allergies Allergies: Coded Allergies: No Known Drug Allergies (Verified Allergy, Unknown, 06/02/16) PMhx/Soc Reviewed in chart. As per HPI. History of Surgery: Yes (RIGHT KNEE SURGERY , HERNIA REPAIR , C- SECTION, 75% STOMACH/INTESTINE REM) Anesthesia Reaction: No Hx Neurological Disorder: No Hx Respiratory Disorders: No Hx Cardiac Disorders: Yes (HTN) Hx Psychiatric Problems: No Hx Miscellaneous Medical Probl: Yes (NIDDM,C section, hernia repair, knee replacement) Hx Alcohol Use: No Hx Substance Use: No Hx Tobacco Use: No Smoking Status: Never smoker FmHx No stroke or cancer. Physical Exam Vitals Vital Signs Date Time Temp Pulse Resp B/P Pulse Ox O2 Delivery O2 Flow Rate FiO2 03/10/17 17:26 102 18 106/72 98 Room Air 03/10/17 15:30 94 19 127/64 98 Room Air 03/10/17 13:30 97.8 98 20 130/80 97 Room Air 03/10/17 13:08 97.8 103 20 125/73 98 Physical Exam Const: Alert, chronically ill-appearing. Moderate distress. Head: Atraumatic Eyes: Normal Conjunctiva ENT: Normal External Ears, Nose and Mouth. Neck: Full range of motion. No JVD. Nontender. Resp: Diminished at the bases but otherwise clear to auscultation bilaterally Cardio: Tachycardic. regular rhythm. No murmurs or gallops. Abd: Soft, obese, mild, diffuse, generalized tenderness but no rebound or guarding. Bowel sounds are normal. Skin: No petechiae or rashes Back: No midline or flank tenderness Ext: No cyanosis, or edema. No calf swelling or tenderness. Neur: Awake and alert. No focal deficit observed. Motor and sensory equal bilaterally. Psych: Cooperative, anxious. Result Diagram: 03/10/17 1345 03/10/17 1345 Results 24 hrs Laboratory Tests Test 03/10/17 13:45 03/10/17 14:00 White Blood Count 7.610^3/ul Red Blood Count 3.9010^6/ul Hemoglobin 11.6g/dl Hematocrit 37.8% Mean Corpuscular Volume 96.9fl Mean Corpuscular Hemoglobin 29.7pg Mean Corpuscular Hemoglobin Concent 30.7g/dl Red Cell Distribution Width 16.4% Platelet Count 97031^3/UL Mean Platelet Volume 8.4fl Neutrophils % 57.8% Lymphocytes % 31.8% Monocytes % 8.0% Eosinophils % 1.7% Basophils % 0.4% Nucleated Red Blood Cells % 0.0/100WBC Neutrophils # 4.410^3/ul Lymphocytes # 2.410^3/ul Monocytes # 0.610^3/ul Eosinophils # 0.110^3/ul Basophils # 0.010^3/ul Nucleated Red Blood Cells # 0.010^3/ul Urine Color YELLOW Urine Clarity SLIGHTLY CLOUDY Urine pH 6.0 Urine Specific [place] 1.009 Urine Ketones NEGATIVEmg/dL Urine Nitrite NEGATIVEmg/dL Urine Bilirubin NEGATIVEmg/dL Urine Urobilinogen NEGATIVEmg/dL Urine Leukocyte Esterase 2+Jacque/ul Urine Microscopic RBC 4/HPF Urine Microscopic WBC 19/HPF Urine Calcium Oxalate Crystals FEW/HPF Urine Mucus FEW/HPF Urine Hemoglobin NEGATIVEmg/dL Urine Glucose NEGATIVEmg/dL Urine Total Protein NEGATIVEmg/dl Sodium Level 138mmol/L Potassium Level 4.0mmol/L Chloride Level 103mmol/L Carbon Dioxide Level 27mmol/L Anion Gap 12 Blood Urea Nitrogen 9mg/dl Creatinine 0.64mg/dl Glucose Level 107mg/dl Calcium Level 8.8mg/dl Total Bilirubin 0.2mg/dl Direct Bilirubin 0.00mg/dl Indirect Bilirubin 0.2mg/dl Aspartate Amino Transf (AST/SGOT) 40IU/L Alanine Aminotransferase (ALT/SGPT) 37IU/L Alkaline Phosphatase 193IU/L Troponin I < 0.012ng/ml Total Protein 8.1g/dl Albumin 3.6g/dl Globulin 4.50g/dl Albumin/Globulin Ratio 0.80 Lipase 92U/L Prothrombin Time 13.9Sec Prothrombin Time Ratio 1.1 INR International Normalized Ratio 1.07 Activated Partial Thromboplast Time 37.7Sec Free Thyroxine 1.56ng/dl Current Medications Medications (Trade) Dose Ordered Sig/[place] Route PRN Reason Start Time Stop Time Status Last Admin Dose Admin Sodium Chloride (NS) 500 ml @ 500 mls/hr Q1H STAT IV 03/10/17 13:51 03/10/17 14:50 DC 03/10/17 14:01 Ketorolac Tromethamine (Toradol) 15 mg ONCE STAT IV 03/10/17 13:51 03/10/17 13:55 DC 03/10/17 14:00 IV Flush 10 ml 10 ml STK-MED ONCE .ROUTE 03/10/17 14:24 03/10/17 14:25 DC 03/10/17 14:41 Sodium Chloride (NS) 100 ml @ ud STK-MED ONCE .ROUTE 03/10/17 14:24 03/10/17 14:25 DC 03/10/17 14:41 Iohexol (Omnipaque 300mg/ ml) 150 ml STK-MED ONCE .ROUTE 03/10/17 14:24 03/10/17 14:25 DC 03/10/17 14:43 IV Flush 10 ml 10 ml STK-MED ONCE .ROUTE 03/10/17 16:37 03/10/17 16:38 DC Sodium Chloride (NS) 100 ml @ ud STK-MED ONCE .ROUTE 03/10/17 16:37 03/10/17 16:38 DC Iohexol (Omnipaque 300mg/ ml) 150 ml STK-MED ONCE .ROUTE 03/10/17 16:37 03/10/17 16:38 DC Enoxaparin Sodium (Lovenox) 80 mg ONCE SC 03/10/17 18:00 03/10/17 18:52 DC 03/10/17 18:10 Ondansetron HCl (Zofran Inj) 4 mg ER BRIDGE PRN IV NAUSEA AND/OR VOMITING 03/10/17 18:00 03/10/17 18:59 DC Acetaminophen (Tylenol Tab) 650 mg ER BRIDGE PRN PO MILD PAIN/FEVER 03/10/17 18:00 03/10/17 18:52 DC EKG: Time: 13:10. Sinus rhythm. Ventricular rate 97. Normal NC and QRS. Normal axis. No ectopy. Poor R-wave progression in the anterior leads but no acute ST segment elevation or depression. EP interpretation: Abnormal ECG. PROCEDURE: CTA Chest. CLINICAL INDICATION: Pulmonary embolism . Tachycardia. TECHNIQUE: The study was performed utilizing a multidetector CT scanner. Direct spiral 1 mm axial sections were obtained from the thoracic inlet to the upper abdomen with the use of 100 cc of Omnipaque 350 nonionic intravenous contrast material and reformatted at 3 mm. Coronal, sagittal and 3-D angiographic reformations were obtained. The images were reviewed on a PACS workstation. CT D I 35 mCi Dose 510 mGy/cm Individualized dose optimization technique was used for the performance of this exam. This included 1. Automated exposure control. 2. Adjustment of the mA and / or kV according to the patient's size. 3. Use of iterative reconstruction technique. COMPARISON: CT abdomen pelvis March 10, 2017. FINDINGS: Noted is a saddle embolism extending into both right and left main pulmonary arteries. There is only mild compromise of these vessels. There is partially occlusive thrombus noted in the first and second order branches of the right upper lobe, middle lobe and lower lobe pulmonary arteries and in a first order branch of the left upper lobe pulmonary artery. The main pulmonary artery measures 3.7 cm in diameter. This is compatible with pulmonary hypertension. Thoracic aorta is without evidence of aneurysm or dissection. No hilar or mediastinal adenopathy or mass is present. There is a large hiatal hernia. Tiny right pleural effusion is seen. There is cardiomegaly. There is atelectasis at the lung bases. No alveolar infiltrate is present. There is a 2.2 x 1.3 cm pleural-based mass like density on the dorsal aspect of the right upper lobe likely representing round atelectasis. No pneumothorax is identified. Noted is enlarged fatty liver. No upper abdominal or adrenal mass is visualized. The osseous structures appear normal. IMPRESSION: Saddle embolism with bilateral pulmonary emboli as above. No aortic dissection or aneurysm. Bibasilar atelectasis. Presumed right upper lobe round atelectasis. Follow-up is recommended. Small right pleural effusion. Hiatal hernia. Enlarged fatty liver. .Frederic Antunez MD, MD Date Time Electronically viewed and signed by .Frederic Antunez MD, on 03/10/2017 17: 15 .A/ Procedures/MDM DOCUMENTS REVIEWED: ED nurse, prior ED, prior records MEDICAL DECISION MAKIN-year-old female history of diabetes and hypertension , status post recent laparotomy and gastric resection for incarcerated hernia and mesenteric ischemia was in rehabilitation until 5 days ago when she was discharged home presents to the ED complaining of ongoing, uncontrolled hypertension, tachycardia and abdominal pain. CT scan of the abdomen and pelvis is unremarkable however CT pulmonary angiogram reveals a saddle pulmonary embolism treated with Lovenox. No shortness of breath currently hemodynamically stable. EKG reveals sinus tachycardia but no dysrhythmia including but not limited to atrial fibrillation and ventricular tachycardia. Admit to telemetry for further evaluation and management. Critical Care Time: 35 minutes Treatments/Evaluations: Close monitoring and treatment of unstable vital signs, cardiorespiratory, and neurologic status, while maintaining tight balance of fluid, respiratory, and cardiac interventions. This time includes discussing the case with the patient and the patient's family. This time does not include all procedures stated elsewhere in this record. This time also includes reviewing old records, labs and radiological studies. This time includes examining and re-examining the patient. Additionally, this time also includes arranging care with admitting and consulting physicians. Counseled patient and family regarding diagnosis, diagnostic results and plan for admission. CALLS/CONSULTS: Time 17:39, Dr. Apodaca. PATIENT CARE TRANSITIONED: Time: 17:58, Dr. Apodaca. Departure Diagnosis: Primary Impression: Palpitations Additional Impressions: Pulmonary embolism Qualified Code: I26.92 - Acute saddle pulmonary embolism without acute cor pulmonale Hypertension Qualified Code: I10 - Essential hypertension Condition: Critical JAMAL ZAMBRANO MD Mar 10, 2017 17:34
[2017-03-10] MEDS ORDERED: ACETAMINOPHEN 325 MG TAB PO PRN (18:00)
[2017-03-10] MEDS ORDERED: ONDANSETRON 4 MG INJ IV PRN ×2 (18:00→19:00)
[2017-03-10] MEDS ORDERED: ENOXAPARIN 80 MG/0.8 ML SYG SC SCH (18:00)
--- NOTE | 2017-03-10 18:52 | RADRPT ---
PROCEDURE: US Lower extremity Venous. CLINICAL INDICATION: Lower extremity pain TECHNIQUE: Multiple sonographic images of the bilateral lower extremity deep venous system was obt ained utilizing grayscale, color-flow, compressive sonography and doppler imaging with augmentation. The images were reviewed on a PACS workstation. COMPARISON: June 02, 2016 FINDINGS: There is normal compressibility and flow within the bilateral common femoral, deep femoral, superfic ial femoral and popliteal veins. The deep veins the calf were incompletely visualized. IMPRESSION: No sonographic evidence for deep venous thrombosis in the bilateral lower extremities. Physician Justin Date Time Electronically viewed and signed by Physician Justin on 03/10/2017 18:51 ML/
[2017-03-10 18:58] LABS: INR 1.07; PROTIME 13.9 Sec (12.2-14.2); PT RATIO 1.1
[2017-03-10 19:00] LABS: PARTIAL THROMBOPLASTIN TIME 37.7 Sec (25.0-35.0)
[2017-03-10] MEDS ORDERED: HYDROCODONE/APAP (5/325) TAB PO PRN (19:00)
[2017-03-10] MEDS ORDERED: morphine 2 MG INJ IV PRN (19:00)
[2017-03-10] MEDS ORDERED: NITROGLYCERIN (SL) 0.4 MG TAB SL PRN (19:00)
[2017-03-10] MEDS ORDERED: ALBUTEROL/IPRATROPIUM (NEB) 3 ML AMP HHN PRN (19:00)
[2017-03-10] MEDS ORDERED: hydrALAzine 20 MG INJ IV PRN (19:00)
[2017-03-10] MEDS ORDERED: NACL 0.9% 3 ML SYG IV SCH (19:00)
[2017-03-10] MEDS ORDERED: NA PHOSPHATE/BIPHOS 133 ML ENEMA PR PRN (19:00)
[2017-03-10] MEDS ORDERED: LORAZEPAM 2 MG INJ IV PRN (19:00)
[2017-03-10] MEDS: LEVOFLOXACIN 750MG/D5W (PMX) 150 ML IVPB SCH (19:31)
[2017-03-10] MEDS: SOD CHLORIDE 0.45% 1,000 ML IV SCH (19:32)
[2017-03-10] MEDS ORDERED: GLUCAGON 1 MG INJ IM PRN (20:00)
[2017-03-10] MEDS ORDERED: GLUCOSE GEL 15 GRAM TUBE BUCCAL PRN (20:00)
[2017-03-10] MEDS ORDERED: GLUCOSE GEL 15 GRAM TUBE PO PRN ×2 (20:00)
[2017-03-10] MEDS ORDERED: DEXTROSE 50% 50 ML SYRINGE IV PRN ×2 (20:00)
[2017-03-10 21:00] VITALS: PULSE 106
[2017-03-10] MEDS: INSULIN ASPART [NOVOLOG] 3 ML PEN SC SCH (21:00)
--- NOTE | 2017-03-10 21:05 | HP ---
DATE OF ADMISSION: 03/10/2017 CHIEF COMPLAINT: Palpitations. HISTORY OF PRESENT ILLNESS: A 66-year-old female with past medical history of recent gastric resection and laparotomy for incarcerated hernia a few months ago and mesenteric ischemia, obesity, hypertension, diabetes, history of lower extremity cellulitis, who came in today because of complaints of palpitations, also thinking that her heart rate was fast, also uncontrolled high blood pressure. The patient was recently discharged from rehab center on March 05, 2017, went home, has been ambulating and using a walker, but she says she has been either in the hospital or rehab center for last 5 months given her recent gastric resection surgery for incarcerated hernia and mesenteric ischemia, and feels like she has been "lying down for a long time." Denies any long trips or plane rides. No dysuria, no diarrhea, constipation, or nausea. She did have some mild vomiting, nonbilious, nonbloody. Mild chest pressure is positive and mild shortness of breath is positive as well, but denies any fevers or chills. When she came in, she had a lower extremity Doppler study performed that showed no DVTs in either lower extremity. She did have a CTA performed that does show positive saddle embolism with bilateral pulmonary emboli, but no dissection or aneurysm, and she was given a dose of Lovenox 1 mg/kg in the ER. PAST MEDICAL HISTORY: As stated above. ALLERGIES: NO KNOWN DRUG ALLERGIES. MEDICATIONS: Home medications, Lopressor 12.5 mg twice a day, Tylenol 1000 mg q.6 p.r.n., Prilosec 40 mg daily, vitamin B12 1000 mcg daily. PAST SURGICAL HISTORY: Again, she has a recent history of right knee surgery, hernia repair, , and again she had stomach and intestine removal secondary to incarcerated hernia with 75 percent removal of stomach. It looks like in the past. SOCIAL HISTORY: Negative for smoking, drinking, IV drug abuse. FAMILY HISTORY: Noncontributory. PHYSICAL EXAMINATION: VITAL SIGNS: Today, T-max 97.8, pulse 94 to 103, respirations 20, blood pressure 106 to 130 systolic over 72 to 80 diastolic, sating 97 percent on room air. GENERAL: Patient is lying in bed, alert, but obese, answer question, no acute distress. HEENT: Pupils equal, round, and react to light. NECK: Neck is supple. No thyromegaly. LUNGS: Slightly decreased breath sounds at the bases bilaterally. CARDIOVASCULAR: S1, S2 heard. No rubs or gallops. ABDOMEN: Obese, soft, nontender, nondistended. Normal bowel sounds. No rebound or guarding. MUSCULOSKELETAL: No lower extremity edema bilaterally. NEUROLOGIC: No focal deficits. LABORATORY DATA: CBC is normal. Comprehensive metabolic panel is normal. Troponin negative times 1. Lipase is normal. Coags are normal. UA shows 2 plus leukocyte esterase positive. We mentioned her CTA results above in her lower extremity Doppler study. She also had a CT abdomen and pelvis performed that shows large hiatal hernia with most of the stomach in the thoracic cavity. Postsurgical changes are seen around the hiatal hernia, duodenum, and left abdominal small bowel loops. There was questionable filling defect seen in the right hilar pulmonary vessel on the 1st image of the study and incompletely evacuated, and again if pulmonary embolism is clinically suspected, CT angiogram is advised, hepatic steatosis, atrophic pancreas with mild dilation of pancreatic duct and common bile duct near the pancreatic head. ASSESSMENT AND PLAN: A 66-year-old female with recent hospitalization for incarcerated hernia and mesenteric ischemia, who presents with palpitations and high blood pressure, and is found with subtle pulmonary embolisms. 1. Palpitations and pulmonary embolism. Admit patient to telemetry floor. Put her on Lovenox 1 mg/kg b.i.d. Get vascular surgery and pulmonary consult. Oxygen supplementation as needed. Consider PT consult, check TSH, A1c, and lipid panel. 2. History of diabetes. Put on sliding scale insulin. Check A1c. 3. Hypertension. Again, continue current cardiac medications. 4. Recent stomach and intestinal removal with incarcerated hernia, again to monitor for now. No present issues. Will get PT consult. 5. Obesity. Counseled on weight loss cessation. 6. Gastrointestinal prophylaxis. PPI. 7. Deep venous thrombosis prophylaxis. Again, she is on Lovenox 1 mg/kg b.i.d. Dictated By: Harshad Zafar MD /bobby/luis /Document#: [id number]
[2017-03-10 21:33] VITALS: BP 110/57; RESP 20
[2017-03-10] MEDS: METOPROLOL 25 MG TAB PO SCH (23:51)
[2017-03-11] VITALS (10 sets, daily range): BP systolic 106–113; BP diastolic 53–70; PULSE 62–96; RESP 16–21
[2017-03-11] MEDS: INSULIN ASPART [NOVOLOG] 3 ML PEN SC SCH ×6 (01:00→20:47)
[2017-03-11] MEDS ORDERED: ACCU-CHEK XX SCH (02:00)
[2017-03-11] MEDS: PANTOPRAZOLE (EC) 40 MG TAB PO SCH (06:06)
[2017-03-11] MEDS: ENOXAPARIN 100 MG/ML SYG SC SCH ×2 (06:13→20:46)
[2017-03-11 07:13] LABS: BASOPHILS % 0.5 % (0.0-2.0); EOSINOPHILS # 0.2 10^3/ul (0.0-0.5); EOSINOPHILS % 5.8 % (0.0-7.0); HEMOGLOBIN 9.6 g/dl (12.0-16.0); LYMPHOCYTES # 1.2 10^3/ul (0.8-2.9); LYMPHOCYTES % 31.2 % (15.0-51.0); MEAN CORPUSCULAR HEMOGLOBIN 28.8 pg (29.0-33.0); MEAN CORPUSCULAR HGB CONC 29.1 g/dl (32.0-37.0); MEAN CORPUSCULAR VOLUME 99.1 fl (82.0-101.0); MEAN PLATELET VOLUME 8.3 fl (7.4-10.4); MONOCYTE # 0.4 10^3/ul (0.3-0.9); MONOCYTES % 10.1 % (0.0-11.0); NEUTROPHIL # 2.1 10^3/ul (1.6-7.5); NEUTROPHILS % 52.1 % (39.0-77.0); PLATELET COUNT 338 10^3/UL (140-415); RED BLOOD COUNT 3.33 10^6/ul (4.20-5.40); RED CELL DISTRIBUTION WIDTH 16.5 % (11.5-14.5)
[2017-03-11] MEDS: SOD CHLORIDE 0.45% 1,000 ML IV SCH ×2 (07:43→21:22)
[2017-03-11 07:52] LABS: CALCIUM 7.9 mg/dl (8.4-10.2); CREATININE 0.48 mg/dl (0.44-1.00); MAGNESIUM 1.9 mg/dl (1.7-2.5); PHOSPHORUS 4.5 mg/dl (2.5-4.9); POTASSIUM 3.9 mmol/L (3.5-5.1)
[2017-03-11] MEDS: METOPROLOL 25 MG TAB PO SCH ×2 (08:49→20:44)
[2017-03-11] MEDS: CYANOCOBALAMIN 100 MCG TAB PO SCH (08:49)
--- NOTE | 2017-03-11 10:29 | PN ---
Date/Time of Note Date/Time of Note DATE: 03/11/17 TIME: 10:21 Assessment/Plan VTE Prophylaxis VTE Prophylaxis Intervention: LMWH Lines/Catheters IV C[facility]ter [facility] Peripheral IV Assessment/Plan Chief Complaint/Hosp Course ASSESSMENT AND PLAN: A 66-year-old female with recent hospitalization for incarcerated hernia and mesenteric ischemia, who presents with palpitations and high blood pressure, and is found with subtle pulmonary embolisms. 1. Palpitations and pulmonary embolism -saddle PE, on RA satting well. - Lovenox 1 mg/kg b.i.d. f/u vascular surgery and pulmonary consult rec's. Oxygen supplementation as needed. - f/u PT consult, and TSH, A1c, and lipid panel. 2. History of diabetes- sliding scale insulin. f/u A1c. 3. Hypertension. Again, continue current cardiac medications. 4. Recent stomach and intestinal removal with incarcerated hernia, again to monitor for now. No present issues. Will get PT consult. 5. Obesity. Counseled on weight loss cessation. 6. Gastrointestinal prophylaxis. PPI. 7. Deep venous thrombosis prophylaxis. Again, she is on Lovenox 1 mg/kg b.i.d. Problems: Subjective 24 Hr Interval Summary Free Text/Dictation Seen by pulmonary team this morning. No acute events overnight. Exam/Review of Systems Vital Signs Vitals Vital Signs Date Time Temp Pulse Resp B/P Pulse Ox O2 Delivery O2 Flow Rate FiO2 03/11/17 08:44 84 03/11/17 07:41 98.2 17 107/70 100 03/10/17 20:23 Room Air Exam GENERAL: Patient is lying in bed, alert, but obese, answer question, no acute distress. HEENT: Pupils equal, round, and react to light. NECK: Neck is supple. No thyromegaly. LUNGS: Slightly decreased breath sounds at the bases bilaterally. CARDIOVASCULAR: S1, S2 heard. No rubs or gallops. ABDOMEN: Obese, soft, nontender, nondistended. Normal bowel sounds. No rebound or guarding. MUSCULOSKELETAL: No lower extremity edema bilaterally. NEUROLOGIC: No focal deficits. Results Result Diagram: 03/11/17 0656 03/11/17 0656 Results 24 hrs Laboratory Tests Test 03/10/17 13:45 03/10/17 14:00 03/10/17 20:23 03/11/17 02:31 White Blood Count 7.6 # Red Blood Count 3.90 L Hemoglobin 11.6 L Hematocrit 37.8 Mean Corpuscular Volume 96.9 Mean Corpuscular Hemoglobin 29.7 Mean Corpuscular Hemoglobin Concent 30.7 L Red Cell Distribution Width 16.4 #H Platelet Count 474 H Mean Platelet Volume 8.4 Neutrophils % 57.8 Lymphocytes % 31.8 Monocytes % 8.0 Eosinophils % 1.7 Basophils % 0.4 Nucleated Red Blood Cells % 0.0 Neutrophils # 4.4 Lymphocytes # 2.4 Monocytes # 0.6 Eosinophils # 0.1 Basophils # 0.0 Nucleated Red Blood Cells # 0.0 Urine Color YELLOW Urine Clarity SLIGHTLY CLOUDY A Urine pH 6.0 Urine Specific [place] 1.009 Urine Ketones NEGATIVE Urine Nitrite NEGATIVE Urine Bilirubin NEGATIVE Urine Urobilinogen NEGATIVE Urine Leukocyte Esterase 2+ H Urine Microscopic RBC 4 Urine Microscopic WBC 19 H Urine Calcium Oxalate Crystals FEW A Urine Mucus FEW A Urine Hemoglobin NEGATIVE Urine Glucose NEGATIVE Urine Total Protein NEGATIVE Sodium Level 138 Potassium Level 4.0 Chloride Level 103 Carbon Dioxide Level 27 Anion Gap 12 Blood Urea Nitrogen 9 Creatinine 0.64 Glucose Level 107 Calcium Level 8.8 Total Bilirubin 0.2 Direct Bilirubin 0.00 Indirect Bilirubin 0.2 Aspartate Amino Transf (AST/SGOT) 40 Alanine Aminotransferase (ALT/SGPT) 37 Alkaline Phosphatase 193 H Troponin I < 0.012 Total Protein 8.1 Albumin 3.6 Globulin 4.50 H Albumin/Globulin Ratio 0.80 Lipase 92 Prothrombin Time 13.9 Prothrombin Time Ratio 1.1 INR International Normalized Ratio 1.07 Activated Partial Thromboplast Time 37.7 H Free Thyroxine 1.56 Bedside Glucose 81 78 Test 03/11/17 06:04 03/11/17 06:56 03/11/17 08:32 Bedside Glucose 91 70 White Blood Count 4.0 #L Red Blood Count 3.33 L Hemoglobin 9.6 L Hematocrit 33.0 L Mean Corpuscular Volume 99.1 Mean Corpuscular Hemoglobin 28.8 L Mean Corpuscular Hemoglobin Concent 29.1 L Red Cell Distribution Width 16.5 H Platelet Count 338 # Mean Platelet Volume 8.3 Neutrophils % 52.1 Lymphocytes % 31.2 Monocytes % 10.1 Eosinophils % 5.8 Basophils % 0.5 Nucleated Red Blood Cells % 0.0 Neutrophils # 2.1 Lymphocytes # 1.2 Monocytes # 0.4 Eosinophils # 0.2 Basophils # 0.0 Nucleated Red Blood Cells # 0.0 Sodium Level 138 Potassium Level 3.9 Chloride Level 108 Carbon Dioxide Level 23 Anion Gap 11 Blood Urea Nitrogen 6 L Creatinine 0.48 Glucose Level 75 Hemoglobin A1c 5.2 Calcium Level 7.9 L Phosphorus Level 4.5 Magnesium Level 1.9 Medications Medications Current Medications Ondansetron HCl (Zofran Inj) 4 mg Q6H PRN IV NAUSEA AND/OR VOMITING; Start at 19:00 Acetaminophen (Tylenol Tab) 650 mg Q6H PRN PO PAIN LEVEL 1-3 OR FEVER; Start 03/10/17 at 19:00 Acetaminophen/ Hydrocodone Bitart ([place] (5/325)) 1 tab Q6H PRN PO MODERATE PAIN LEVEL 4-6 Last administered on 03/11/17 00:06; Admin Dose 1 TAB; Start 03/10/17 at 19:00 Morphine Sulfate (morphine) 2 mg Q4H PRN IV SEVERE PAIN LEVEL 7-10; Start at 19:00 Docusate Sodium (Colace) 100 mg Q12H PRN PO CONSTIPATION; Start 03/10/17 at 19 :00 Magnesium Hydroxide (Milk Of Mag) 30 ml DAILY PRN PO CONSTIPATION; Start 03/10 at 19:00 Sodium Biphosphate/ Sodium Phosphate 133 ml 133 ml DAILY PRN [place] CONSTIPATION; Start 03/10/17 at 19:00 Sodium Chloride (1/2 NS) 1,000 ml @ 75 mls/hr [id number] IV Last administered on 03/11/17 07:43; Admin Dose 75 MLS/HR; Start 03/10/17 at 18:42 Lorazepam (Ativan) 0.5 mg Q6H PRN IV ANXIETY; Start 03/10/17 at 19:00 Hydralazine HCl (Apresoline) 10 mg Q6H PRN IV ELEVATED BLOOD PRESSURE; Start 03/10/17 at 19:00 Nitroglycerin (Nitroglycerin (Sl Tab) 0.4 Mg) 1 tab Q5M PRN SL ANGINA; Start 03/10/17 at 19:00 Cyanocobalamin (Vitamin B12) 100 mcg DAILY PO Last administered on 03/11/17 08:49; Admin Dose 100 MCG; Start 03/11/17 at 09:00 Metoprolol Tartrate (Lopressor) 12.5 mg BID PO Last administered on 03/11/17 08:49; Admin Dose 12.5 MG; Start 03/10/17 at 21:00 Pantoprazole (Protonix Tab) 40 mg DAILY@06 PO Last administered on 03/11/17 06:06; Admin Dose 40 MG; Start 03/11/17 at 06:00 Enoxaparin Sodium 80 mg 80 mg Q12 SC Last administered on 03/11/17 06:13; Admin Dose 80 MG; Start 03/11/17 at 06:00 Levofloxacin/ Dextrose (Levaquin 750 Mg/ D5W 150 ml (Pmx)) 150 ml @ 100 mls/hr Q24H IVPB Last administered on 03/10/17 19:31; Admin Dose 100 MLS/HR; Start 03/10/17 at 19:00 Insulin Aspart (Novolog Insulin Pen) NOVOLOG *MILD* ALGORI... Q4 SC ; Start at 21:00 Miscellaneous Information 1 ea NOTE XX ; Start 03/10/17 at 20:00 Glucose (Glutose) 15 gm Q15M PRN PO DECREASED GLUCOSE; Start 03/10/17 at 20:00 Glucose (Glutose) 22.5 gm Q15M PRN PO DECREASED GLUCOSE; Start 03/10/17 at 20: 00 Dextrose (D50w Syringe) 25 ml Q15M PRN IV DECREASED GLUCOSE; Start 03/10/17 at 20:00 Dextrose (D50w Syringe) 50 ml Q15M PRN IV DECREASED GLUCOSE; Start 03/10/17 at 20:00 Glucagon (Glucagen) 1 mg Q15M PRN IM DECREASED GLUCOSE; Start 03/10/17 at 20: 00 Glucose (Glutose) 15 gm Q15M PRN BUCCAL DECREASED GLUCOSE; Start 03/10/17 at 20:00 CRISTIANE WATKINS Mar 11, 2017 10:29
--- NOTE | 2017-03-11 11:35 | CONS ---
Date/Time of Note Date/Time of Note DATE: 03/11/17 TIME: 11:29 Assessment/Plan Assessment/Plan Additional Assessment/Plan Assessment and recommendations; 1. Patient admitted with saddle pulmonary embolism with stable clinical status. 2. History of laparotomy with gastrectomy. 3. History of diabetes and hypertension. Continue current treatment. Continue Lovenox at current dosing. Patient could possibly be switched over to apixaban. Consultation Date/Type/Reason Admit Date/Time Mar 10, 2017 at 18:01 Date of Consultation: Mar 11, 2017 Type of Consultation: Pulmonary Reason for Consultation Pulmonary consultation requested for evaluation of pulmonary embolism. History of presenting illness; patient is a pleasant 66-year-old lady who came into the emergency room yesterday with complaints of having palpitations as well as chest pressure. Upon evaluation a CTA of the chest was done which is showing saddle pulmonary embolism with bilateral pulmonary emboli. However the emboli are known occlusive. Patient has been started on full dose Lovenox and is currently doing very well denies any chest pain, complains of very minimal shortness of breath. Denies any coughing, sputum production or hemoptysis. Past medical history; 1. Patient with a history of laparotomy with gastric resection. 2. History of incarcerated umbilical hernia. 3. Hypertension. 4. Diabetes. 5. Mild obesity. 6. History of lower extremity cellulitis. 7. History of . Medications; reviewed. Allergies; none. Social history; patient never smoked. Family history; patient is single she has 2 children. No history of any illnesses in the family. 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 Review systems; denies any headache, seizures, sinus symptoms. Any visual changes. Any chest pain. Chest pressure has resolved. Denies any cough, hemoptysis or sputum production. Denies any abdominal pain, nausea vomiting. Denies any dysphagia. Any weight loss. Denies any edema. General exam; elderly woman, currently in no distress. Awake and alert. Social History Smoking Status: Never smoker Exam/Review of Systems Vital Signs Vitals Vital Signs Date Time Temp Pulse Resp B/P Pulse Ox O2 Delivery O2 Flow Rate FiO2 03/11/17 08:44 84 03/11/17 07:41 98.2 17 107/70 100 03/10/17 20:23 Room Air Exam HEENT exam; supple neck, no JVD. No lymphadenopathy. Midline trachea. No thyromegaly. Pharynx is clear. Patient upper jaw is edentulous. Pupils are midsize and reactive to light. Chest exam; clear to auscultation. S1-S2 audible, no murmurs. Regular rhythm. Abdomen exam; soft, nontender. No organomegaly. There is a well-healed laparotomy scar. Abdomen is nondistended. Bowel sounds audible. Extremity exam; no peripheral edema. Pulses 1+ bilaterally. DEAF TEACHER exam; no focal deficit. Results Result Diagram: 03/11/17 0656 03/11/17 0656 Results 24 hrs Laboratory Tests Test 03/10/17 13:45 03/10/17 14:00 03/10/17 20:23 03/11/17 02:31 White Blood Count 7.6 # Red Blood Count 3.90 L Hemoglobin 11.6 L Hematocrit 37.8 Mean Corpuscular Volume 96.9 Mean Corpuscular Hemoglobin 29.7 Mean Corpuscular Hemoglobin Concent 30.7 L Red Cell Distribution Width 16.4 #H Platelet Count 474 H Mean Platelet Volume 8.4 Neutrophils % 57.8 Lymphocytes % 31.8 Monocytes % 8.0 Eosinophils % 1.7 Basophils % 0.4 Nucleated Red Blood Cells % 0.0 Neutrophils # 4.4 Lymphocytes # 2.4 Monocytes # 0.6 Eosinophils # 0.1 Basophils # 0.0 Nucleated Red Blood Cells # 0.0 Urine Color YELLOW Urine Clarity SLIGHTLY CLOUDY A Urine pH 6.0 Urine Specific [place] 1.009 Urine Ketones NEGATIVE Urine Nitrite NEGATIVE Urine Bilirubin NEGATIVE Urine Urobilinogen NEGATIVE Urine Leukocyte Esterase 2+ H Urine Microscopic RBC 4 Urine Microscopic WBC 19 H Urine Calcium Oxalate Crystals FEW A Urine Mucus FEW A Urine Hemoglobin NEGATIVE Urine Glucose NEGATIVE Urine Total Protein NEGATIVE Sodium Level 138 Potassium Level 4.0 Chloride Level 103 Carbon Dioxide Level 27 Anion Gap 12 Blood Urea Nitrogen 9 Creatinine 0.64 Glucose Level 107 Calcium Level 8.8 Total Bilirubin 0.2 Direct Bilirubin 0.00 Indirect Bilirubin 0.2 Aspartate Amino Transf (AST/SGOT) 40 Alanine Aminotransferase (ALT/SGPT) 37 Alkaline Phosphatase 193 H Troponin I < 0.012 Total Protein 8.1 Albumin 3.6 Globulin 4.50 H Albumin/Globulin Ratio 0.80 Lipase 92 Prothrombin Time 13.9 Prothrombin Time Ratio 1.1 INR International Normalized Ratio 1.07 Activated Partial Thromboplast Time 37.7 H Free Thyroxine 1.56 Bedside Glucose 81 78 Test 03/11/17 06:04 03/11/17 06:56 03/11/17 08:32 Bedside Glucose 91 70 White Blood Count 4.0 #L Red Blood Count 3.33 L Hemoglobin 9.6 L Hematocrit 33.0 L Mean Corpuscular Volume 99.1 Mean Corpuscular Hemoglobin 28.8 L Mean Corpuscular Hemoglobin Concent 29.1 L Red Cell Distribution Width 16.5 H Platelet Count 338 # Mean Platelet Volume 8.3 Neutrophils % 52.1 Lymphocytes % 31.2 Monocytes % 10.1 Eosinophils % 5.8 Basophils % 0.5 Nucleated Red Blood Cells % 0.0 Neutrophils # 2.1 Lymphocytes # 1.2 Monocytes # 0.4 Eosinophils # 0.2 Basophils # 0.0 Nucleated Red Blood Cells # 0.0 Sodium Level 138 Potassium Level 3.9 Chloride Level 108 Carbon Dioxide Level 23 Anion Gap 11 Blood Urea Nitrogen 6 L Creatinine 0.48 Glucose Level 75 Hemoglobin A1c 5.2 Calcium Level 7.9 L Phosphorus Level 4.5 Magnesium Level 1.9 Medications Medications Current Medications Ondansetron HCl (Zofran Inj) 4 mg Q6H PRN IV NAUSEA AND/OR VOMITING; Start at 19:00 Acetaminophen (Tylenol Tab) 650 mg Q6H PRN PO PAIN LEVEL 1-3 OR FEVER; Start 03/10/17 at 19:00 Acetaminophen/ Hydrocodone Bitart ([place] (5/325)) 1 tab Q6H PRN PO MODERATE PAIN LEVEL 4-6 Last administered on 03/11/17 00:06; Admin Dose 1 TAB; Start 03/10/17 at 19:00 Morphine Sulfate (morphine) 2 mg Q4H PRN IV SEVERE PAIN LEVEL 7-10; Start at 19:00 Docusate Sodium (Colace) 100 mg Q12H PRN PO CONSTIPATION; Start 03/10/17 at 19 :00 Magnesium Hydroxide (Milk Of Mag) 30 ml DAILY PRN PO CONSTIPATION; Start 03/10 at 19:00 Sodium Biphosphate/ Sodium Phosphate 133 ml 133 ml DAILY PRN [place] CONSTIPATION; Start 03/10/17 at 19:00 Sodium Chloride (1/2 NS) 1,000 ml @ 75 mls/hr [id number] IV Last administered on 03/11/17 07:43; Admin Dose 75 MLS/HR; Start 03/10/17 at 18:42 Lorazepam (Ativan) 0.5 mg Q6H PRN IV ANXIETY; Start 03/10/17 at 19:00 Hydralazine HCl (Apresoline) 10 mg Q6H PRN IV ELEVATED BLOOD PRESSURE; Start 03/10/17 at 19:00 Nitroglycerin (Nitroglycerin (Sl Tab) 0.4 Mg) 1 tab Q5M PRN SL ANGINA; Start 03/10/17 at 19:00 Cyanocobalamin (Vitamin B12) 100 mcg DAILY PO Last administered on 03/11/17 08:49; Admin Dose 100 MCG; Start 03/11/17 at 09:00 Metoprolol Tartrate (Lopressor) 12.5 mg BID PO Last administered on 03/11/17 08:49; Admin Dose 12.5 MG; Start 03/10/17 at 21:00 Pantoprazole (Protonix Tab) 40 mg DAILY@06 PO Last administered on 03/11/17 06:06; Admin Dose 40 MG; Start 03/11/17 at 06:00 Enoxaparin Sodium 80 mg 80 mg Q12 SC Last administered on 03/11/17 06:13; Admin Dose 80 MG; Start 03/11/17 at 06:00 Levofloxacin/ Dextrose (Levaquin 750 Mg/ D5W 150 ml (Pmx)) 150 ml @ 100 mls/hr Q24H IVPB Last administered on 03/10/17 19:31; Admin Dose 100 MLS/HR; Start 03/10/17 at 19:00 Insulin Aspart (Novolog Insulin Pen) NOVOLOG *MILD* ALGORI... Q4 SC ; Start at 21:00 Miscellaneous Information 1 ea NOTE XX ; Start 03/10/17 at 20:00 Glucose (Glutose) 15 gm Q15M PRN PO DECREASED GLUCOSE; Start 03/10/17 at 20:00 Glucose (Glutose) 22.5 gm Q15M PRN PO DECREASED GLUCOSE; Start 03/10/17 at 20: 00 Dextrose (D50w Syringe) 25 ml Q15M PRN IV DECREASED GLUCOSE; Start 03/10/17 at 20:00 Dextrose (D50w Syringe) 50 ml Q15M PRN IV DECREASED GLUCOSE; Start 03/10/17 at 20:00 Glucagon (Glucagen) 1 mg Q15M PRN IM DECREASED GLUCOSE; Start 03/10/17 at 20: 00 Glucose (Glutose) 15 gm Q15M PRN BUCCAL DECREASED GLUCOSE; Start 03/10/17 at 20:00 DEMETRIA HODGE Mar 11, 2017 11:35
--- NOTE | 2017-03-11 15:55 | CONS ---
DATE OF ADMISSION: 03/10/2017 DATE OF CONSULTATION: 03/11/2017 TYPE OF CONSULTATION: VASCULAR SURGERY Dear Doctors: Ms. Mathews is a 66-year-old female who presented to [facility] secondary to mild c hest pressure and shortness of breath, and during evaluation and workup, it was identified the patie nt having significantly large saddle embolus of bilateral pulmonary arteries. At that time, patient was admitted and was started on anticoagulation and vascular surgery consultation was obtained for further evaluation and possible thrombectomy and intervention. At the moment, the patient is restin g comfortably on room air without any respiratory limitations. She denies shortness of breath, but she does have some mild chest pain on the right side. Denies lower extremity claudication or rest p ain. Further, the patient mentions that she can tolerate her diet without any postprandial pain. Of note, patient did have a recent history of gastric resection and laparotomy for incarcerated nuno ia, in which she was at an outside hospital. PAST MEDICAL HISTORY: Entails morbidly obese, incarcerated abdominal hernia in which she is status post gastric resection and laparotomy, hypertension, diabetes, bilateral lower extremity atheroscler osis, aortoiliac atherosclerotic disease. PAST SURGICAL HISTORY: As listed above. Also, right knee surgery, hernia repair, . ALLERGIES: NO KNOWN DRUG ALLERGIES. SOCIAL HISTORY: Denies tobacco, alcohol or illicit drug use. FAMILY HISTORY: Positive for hypertension and diabetes. PHYSICAL EXAMINATION: GENERAL: Alert and oriented x3, no apparent distress. HEENT: Normocephalic, atraumatic. PERRLA, EOMI. Mucosa moist. NECK: Supple. No carotid bruit. PULMONARY: Coarse breath sounds bilaterally, some decreased breath sounds at the bases. ABDOMEN: Soft, nontender, nondistended. Bowel sounds positive. Surgical scar well healed. LOWER EXTREMITIES: Palpable femoral pulse, nonpalpable pedal pulse. Motor, sensory intact. Cap re fill 3 seconds. ASSESSMENT AND PLAN: 1. Pulmonary embolism: It seems the patient has sustained a large saddle embolus that currently sh e is not in any respiratory distress. From a vascular surgery standpoint, no further intervention w ould be recommended, such as thrombectomy or thrombolysis as the patient has no current respiratory distress or cardiac compromise. Recommend continuing with our current anticoagulation management an d will continue to monitor the patient closely. It seems that this may have been a provoked circums tance in which the patient has been not as ambulatory as she has been in the past after her abdomina l surgery. 2. Optimize vascular status. 3. Discussed findings, plan and management with the patient and she understands. Thank you for allowing us to partake in the care of your patient. Please call with any questions. Dictated By: MELA SAMPSON/SIMONE Conf#: [id number] DID#: [id number]
[2017-03-11 19:14] LABS: THYROID STIMULATING HORMONE 1.83 MIU/L (0.465-4.680)
[2017-03-11 19:28] LABS: CHOL/HDL RATIO 3.6 RATIO
[2017-03-11] MEDS: LEVOFLOXACIN 750MG/D5W (PMX) 150 ML IVPB SCH (20:43)
[2017-03-12] VITALS (12 sets, daily range): BP systolic 107–131; BP diastolic 58–73; PULSE 74–125; RESP 16–18
[2017-03-12] MEDS: ACETAMINOPHEN 325 MG TAB PO PRN ×2 (00:34→21:06)
[2017-03-12] MEDS: INSULIN ASPART [NOVOLOG] 3 ML PEN SC SCH ×6 (01:00→20:20)
[2017-03-12] MEDS ORDERED: HEPARIN 5,000 UNIT/0.5 ML VIAL IV ONE (01:00)
[2017-03-12] MEDS: PANTOPRAZOLE (EC) 40 MG TAB PO SCH (06:07)
[2017-03-12 07:49] LABS: BASOPHILS % 0.5 % (0.0-2.0); EOSINOPHILS # 0.3 10^3/ul (0.0-0.5); EOSINOPHILS % 7.9 % (0.0-7.0); HEMATOCRIT 35.8 % (37.0-47.0); HEMOGLOBIN 10.9 g/dl (12.0-16.0); LYMPHOCYTES # 1.5 10^3/ul (0.8-2.9); MEAN CORPUSCULAR HEMOGLOBIN 29.9 pg (29.0-33.0); MEAN CORPUSCULAR HGB CONC 30.4 g/dl (32.0-37.0); MEAN CORPUSCULAR VOLUME 98.1 fl (82.0-101.0); MEAN PLATELET VOLUME 8.4 fl (7.4-10.4); MONOCYTE # 0.4 10^3/ul (0.3-0.9); NEUTROPHIL # 2.1 10^3/ul (1.6-7.5); NEUTROPHILS % 47.4 % (39.0-77.0); PLATELET COUNT 354 10^3/UL (140-415); RED BLOOD COUNT 3.65 10^6/ul (4.20-5.40); RED CELL DISTRIBUTION WIDTH 16.2 % (11.5-14.5); WHITE BLOOD COUNT 4.3 10^3/ul (4.8-10.8)
[2017-03-12] MEDS: ENOXAPARIN 100 MG/ML SYG SC SCH ×2 (08:07→21:05)
[2017-03-12] MEDS: CYANOCOBALAMIN 100 MCG TAB PO SCH (08:08)
[2017-03-12] MEDS: METOPROLOL 25 MG TAB PO SCH ×2 (08:12→20:54)
[2017-03-12 08:27] LABS: CALCIUM 8.3 mg/dl (8.4-10.2); CREATININE 0.54 mg/dl (0.44-1.00); POTASSIUM 4.1 mmol/L (3.5-5.1)
--- NOTE | 2017-03-12 11:07 | CONS ---
Date/Time of Note Date/Time of Note DATE: 03/12/17 TIME: 11:06 Assessment/Plan Assessment/Plan Additional Assessment/Plan Assessment and recommendations; 1. Patient admitted with shortness of breath discovered to have saddle pulmonary embolus which is nonobstructing patient however doing very well clinically now. 2. History of prior laparotomy with gastrectomy. 3. History of diabetes and hypertension. Continue current treatment. Patient will need lifelong anticoagulation. Patient also could be switched to apixaban in 48 hours. Consultation Date/Type/Reason Admit Date/Time Mar 10, 2017 at 18:01 Initial Consult Date 03/11/17 Type of Consultation: Pulmonary 24 HR Interval Summary Free Text/Dictation Patient's condition is stable. Denies any shortness of breath, chest pain, wheezing, sputum production or hemoptysis. Any fever or chills. General exam; elderly woman, awake and alert. Currently in no distress. Exam/Review of Systems Vital Signs Vitals Vital Signs Date Time Temp Pulse Resp B/P Pulse Ox O2 Delivery O2 Flow Rate FiO2 03/12/17 08:37 98.0 77 16 131/61 96 03/10/17 20:23 Room Air Intake and Output 03/11/17 03/11/17 03/12/17 15:00 23:00 07:00 Intake Total 700 ml Output Total 1500 ml Balance -800 ml Exam HEENT exam; supple neck, no JVD. No lymphadenopathy. Midline trachea. No thyromegaly. Pharynx is clear. Patient upper jaw is edentulous. Pupils are midsize and reactive to light. Chest exam; clear to auscultation. S1-S2 audible, no murmurs. No gallop. Regular rhythm. Abdomen exam; soft, nontender. There is a well-healed laparotomy scar. Bowel sounds audible. Extremity exam; no peripheral edema. No clubbing. MANAGER GRAPHIC exam; no focal deficit. Results Result Diagram: 03/12/17 0656 03/12/17 0656 Results 24 hrs Laboratory Tests Test 03/11/17 13:01 03/11/17 17:48 03/11/17 20:13 03/12/17 06:56 Bedside Glucose 80 79 88 White Blood Count 4.3 L Red Blood Count 3.65 L Hemoglobin 10.9 L Hematocrit 35.8 L Mean Corpuscular Volume 98.1 Mean Corpuscular Hemoglobin 29.9 Mean Corpuscular Hemoglobin Concent 30.4 L Red Cell Distribution Width 16.2 H Platelet Count 354 Mean Platelet Volume 8.4 Neutrophils % 47.4 Lymphocytes % 34.0 Monocytes % 10.0 Eosinophils % 7.9 H Basophils % 0.5 Nucleated Red Blood Cells % 0.0 Neutrophils # 2.1 Lymphocytes # 1.5 Monocytes # 0.4 Eosinophils # 0.3 Basophils # 0.0 Nucleated Red Blood Cells # 0.0 Sodium Level 138 Potassium Level 4.1 Chloride Level 106 Carbon Dioxide Level 25 Anion Gap 11 Blood Urea Nitrogen 5 L Creatinine 0.54 Glucose Level 80 Calcium Level 8.3 L Test 03/12/17 07:53 Bedside Glucose 82 Medications Medications Current Medications Ondansetron HCl (Zofran Inj) 4 mg Q6H PRN IV NAUSEA AND/OR VOMITING; Start at 19:00 Acetaminophen (Tylenol Tab) 650 mg Q6H PRN PO PAIN LEVEL 1-3 OR FEVER Last administered on 03/12/17 00:34; Admin Dose 650 MG; Start 03/10/17 at 19:00 Acetaminophen/ Hydrocodone Bitart ([place] (5/325)) 1 tab Q6H PRN PO MODERATE PAIN LEVEL 4-6 Last administered on 03/11/17 00:06; Admin Dose 1 TAB; Start 03/10/17 at 19:00 Morphine Sulfate (morphine) 2 mg Q4H PRN IV SEVERE PAIN LEVEL 7-10; Start at 19:00 Docusate Sodium (Colace) 100 mg Q12H PRN PO CONSTIPATION; Start 03/10/17 at 19 :00 Magnesium Hydroxide (Milk Of Mag) 30 ml DAILY PRN PO CONSTIPATION; Start 03/10 at 19:00 Sodium Biphosphate/ Sodium Phosphate 133 ml 133 ml DAILY PRN [place] CONSTIPATION; Start 03/10/17 at 19:00 Sodium Chloride (1/2 NS) 1,000 ml @ 75 mls/hr [id number] IV Last administered on 03/11/17 07:43; Admin Dose 75 MLS/HR; Start 03/10/17 at 18:42 Lorazepam (Ativan) 0.5 mg Q6H PRN IV ANXIETY; Start 03/10/17 at 19:00 Hydralazine HCl (Apresoline) 10 mg Q6H PRN IV ELEVATED BLOOD PRESSURE; Start 03/10/17 at 19:00 Nitroglycerin (Nitroglycerin (Sl Tab) 0.4 Mg) 1 tab Q5M PRN SL ANGINA; Start 03/10/17 at 19:00 Cyanocobalamin (Vitamin B12) 100 mcg DAILY PO Last administered on 03/12/17 08:08; Admin Dose 100 MCG; Start 03/11/17 at 09:00 Metoprolol Tartrate (Lopressor) 12.5 mg BID PO Last administered on 03/12/17 08:12; Admin Dose 12.5 MG; Start 03/10/17 at 21:00 Pantoprazole (Protonix Tab) 40 mg DAILY@06 PO Last administered on 03/12/17 06:07; Admin Dose 40 MG; Start 03/11/17 at 06:00 Enoxaparin Sodium 80 mg 80 mg Q12 SC Last administered on 03/12/17 08:07; Admin Dose 80 MG; Start 03/11/17 at 06:00 Levofloxacin/ Dextrose (Levaquin 750 Mg/ D5W 150 ml (Pmx)) 150 ml @ 100 mls/hr Q24H IVPB Last administered on 03/11/17 20:43; Admin Dose 100 MLS/HR; Start 03/10/17 at 19:00 Insulin Aspart (Novolog Insulin Pen) NOVOLOG *MILD* ALGORI... Q4 SC ; Start at 21:00 Miscellaneous Information 1 ea NOTE XX ; Start 03/10/17 at 20:00 Glucose (Glutose) 15 gm Q15M PRN PO DECREASED GLUCOSE; Start 03/10/17 at 20:00 Glucose (Glutose) 22.5 gm Q15M PRN PO DECREASED GLUCOSE; Start 03/10/17 at 20: 00 Dextrose (D50w Syringe) 25 ml Q15M PRN IV DECREASED GLUCOSE; Start 03/10/17 at 20:00 Dextrose (D50w Syringe) 50 ml Q15M PRN IV DECREASED GLUCOSE; Start 03/10/17 at 20:00 Glucagon (Glucagen) 1 mg Q15M PRN IM DECREASED GLUCOSE; Start 03/10/17 at 20: 00 Glucose (Glutose) 15 gm Q15M PRN BUCCAL DECREASED GLUCOSE; Start 03/10/17 at 20:00 DEMETRIA HODGE 16, 2017 11:07
[2017-03-12] MEDS: SOD CHLORIDE 0.45% 1,000 ML IV SCH (11:51)
[2017-03-12] MEDS: DOCUSATE SODIUM 100 MG CAP PO PRN (16:34)
[2017-03-12] MEDS: LEVOFLOXACIN 750MG/D5W (PMX) 150 ML IVPB SCH (18:21)
--- NOTE | 2017-03-12 18:39 | PN ---
Date/Time of Note Date/Time of Note DATE: 03/12/17 TIME: 18:36 Assessment/Plan VTE Prophylaxis VTE Prophylaxis Intervention: SCD's Lines/Catheters IV Catheter Type (from Nrsg): Peripheral IV Urinary Cath still in place: No Assessment/Plan Assessment/Plan 66 yo F admitted for SOB, found to have saddle PE. sp pulm and vascular evals, no indication for clot removal cont LMWH, transition to PO ATC on Sunday CM cs for HH cont home meds Subjective 24 Hr Interval Summary Free Text/Dictation Breathing comfortably on RA. Per daughter, pt has been weak since her surgery in the spring. Exam/Review of Systems Vital Signs Vitals Vital Signs Date Time Temp Pulse Resp B/P Pulse Ox O2 Delivery O2 Flow Rate FiO2 03/12/17 16:32 96 03/12/17 16:03 98.3 16 125/73 94 03/10/17 20:23 Room Air Intake and Output 03/11/17 03/11/17 03/12/17 15:00 23:00 07:00 Intake Total 700 ml Output Total 1500 ml Balance -800 ml Exam nad no mrg lungs clear abd soft no rashes Results Result Diagram: 03/12/17 0656 03/12/17 0656 Results 24 hrs Laboratory Tests Test 03/11/17 20:13 03/12/17 06:56 03/12/17 07:53 03/12/17 12:27 Bedside Glucose 88 82 87 White Blood Count 4.3 L Red Blood Count 3.65 L Hemoglobin 10.9 L Hematocrit 35.8 L Mean Corpuscular Volume 98.1 Mean Corpuscular Hemoglobin 29.9 Mean Corpuscular Hemoglobin Concent 30.4 L Red Cell Distribution Width 16.2 H Platelet Count 354 Mean Platelet Volume 8.4 Neutrophils % 47.4 Lymphocytes % 34.0 Monocytes % 10.0 Eosinophils % 7.9 H Basophils % 0.5 Nucleated Red Blood Cells % 0.0 Neutrophils # 2.1 Lymphocytes # 1.5 Monocytes # 0.4 Eosinophils # 0.3 Basophils # 0.0 Nucleated Red Blood Cells # 0.0 Sodium Level 138 Potassium Level 4.1 Chloride Level 106 Carbon Dioxide Level 25 Anion Gap 11 Blood Urea Nitrogen 5 L Creatinine 0.54 Glucose Level 80 Calcium Level 8.3 L Test 03/12/17 17:05 Bedside Glucose 93 Medications Medications Current Medications Ondansetron HCl (Zofran Inj) 4 mg Q6H PRN IV NAUSEA AND/OR VOMITING; Start at 19:00 Acetaminophen (Tylenol Tab) 650 mg Q6H PRN PO PAIN LEVEL 1-3 OR FEVER Last administered on 03/12/17 00:34; Admin Dose 650 MG; Start 03/10/17 at 19:00 Acetaminophen/ Hydrocodone Bitart ([place] (5/325)) 1 tab Q6H PRN PO MODERATE PAIN LEVEL 4-6 Last administered on 03/11/17 00:06; Admin Dose 1 TAB; Start 03/10/17 at 19:00 Morphine Sulfate (morphine) 2 mg Q4H PRN IV SEVERE PAIN LEVEL 7-10; Start at 19:00 Docusate Sodium (Colace) 100 mg Q12H PRN PO CONSTIPATION Last administered on 03/12/17 16:34; Admin Dose 100 MG; Start 03/10/17 at 19:00 Magnesium Hydroxide (Milk Of Mag) 30 ml DAILY PRN PO CONSTIPATION; Start 03/10 at 19:00 Sodium Biphosphate/ Sodium Phosphate 133 ml 133 ml DAILY PRN [place] CONSTIPATION; Start 03/10/17 at 19:00 Sodium Chloride (1/2 NS) 1,000 ml @ 75 mls/hr [id number] IV Last administered on 03/12/17 11:51; Admin Dose 75 MLS/HR; Start 03/10/17 at 18:42 Lorazepam (Ativan) 0.5 mg Q6H PRN IV ANXIETY; Start 03/10/17 at 19:00 Hydralazine HCl (Apresoline) 10 mg Q6H PRN IV ELEVATED BLOOD PRESSURE; Start 03/10/17 at 19:00 Nitroglycerin (Nitroglycerin (Sl Tab) 0.4 Mg) 1 tab Q5M PRN SL ANGINA; Start 03/10/17 at 19:00 Cyanocobalamin (Vitamin B12) 100 mcg DAILY PO Last administered on 03/12/17 08:08; Admin Dose 100 MCG; Start 03/11/17 at 09:00 Metoprolol Tartrate (Lopressor) 12.5 mg BID PO Last administered on 03/12/17 08:12; Admin Dose 12.5 MG; Start 03/10/17 at 21:00 Pantoprazole (Protonix Tab) 40 mg DAILY@06 PO Last administered on 03/12/17 06:07; Admin Dose 40 MG; Start 03/11/17 at 06:00 Enoxaparin Sodium 80 mg 80 mg Q12 SC Last administered on 03/12/17 08:07; Admin Dose 80 MG; Start 03/11/17 at 06:00 Levofloxacin/ Dextrose (Levaquin 750 Mg/ D5W 150 ml (Pmx)) 150 ml @ 100 mls/hr Q24H IVPB Last administered on 03/12/17 18:21; Admin Dose 100 MLS/HR; Start 03/10/17 at 19:00 Insulin Aspart (Novolog Insulin Pen) NOVOLOG *MILD* ALGORI... Q4 SC ; Start at 21:00 Miscellaneous Information 1 ea NOTE XX ; Start 03/10/17 at 20:00 Glucose (Glutose) 15 gm Q15M PRN PO DECREASED GLUCOSE; Start 03/10/17 at 20:00 Glucose (Glutose) 22.5 gm Q15M PRN PO DECREASED GLUCOSE; Start 03/10/17 at 20: 00 Dextrose (D50w Syringe) 25 ml Q15M PRN IV DECREASED GLUCOSE; Start 03/10/17 at 20:00 Dextrose (D50w Syringe) 50 ml Q15M PRN IV DECREASED GLUCOSE; Start 03/10/17 at 20:00 Glucagon (Glucagen) 1 mg Q15M PRN IM DECREASED GLUCOSE; Start 03/10/17 at 20: 00 Glucose (Glutose) 15 gm Q15M PRN BUCCAL DECREASED GLUCOSE; Start 03/10/17 at 20:00 MARA FREEMAN MD Mar 12, 2017 18:39
[2017-03-13 00:06] VITALS: BP 109/57; RESP 18
[2017-03-13] MEDS: INSULIN ASPART [NOVOLOG] 3 ML PEN SC SCH (00:37)
[2017-03-13 02:00] VITALS: BP 107/63; RESP 20
[2017-03-13] MEDS: ACCUCHECK 2 AM XX SCH (02:00)
[2017-03-13] MEDS: ACETAMINOPHEN 325 MG TAB PO PRN (05:59)
[2017-03-13] MEDS: PANTOPRAZOLE (EC) 40 MG TAB PO SCH (05:59)
[2017-03-13] MEDS ORDERED: INSULIN ASPART [NOVOLOG] 3 ML PEN SC SCH (07:30)
[2017-03-13 07:45] VITALS: BP 114/55; RESP 18
[2017-03-13] MEDS: Insulin NOVOLOG SS MILD Algorithm (SS with meals and bedtime) SC SCH ×4 (08:00→20:33)
[2017-03-13] MEDS: CYANOCOBALAMIN 100 MCG TAB PO SCH (08:37)
[2017-03-13] MEDS: METOPROLOL 25 MG TAB PO SCH ×2 (08:38→20:32)
[2017-03-13 08:40] LABS: BASOPHILS % 0.2 % (0.0-2.0); EOSINOPHILS # 0.2 10^3/ul (0.0-0.5); EOSINOPHILS % 4.9 % (0.0-7.0); HEMATOCRIT 33.3 % (37.0-47.0); HEMOGLOBIN 10.4 g/dl (12.0-16.0); LYMPHOCYTES # 1.5 10^3/ul (0.8-2.9); LYMPHOCYTES % 35.2 % (15.0-51.0); MEAN CORPUSCULAR HEMOGLOBIN 30.3 pg (29.0-33.0); MEAN CORPUSCULAR HGB CONC 31.2 g/dl (32.0-37.0); MEAN CORPUSCULAR VOLUME 97.1 fl (82.0-101.0); MEAN PLATELET VOLUME 8.4 fl (7.4-10.4); MONOCYTE # 0.4 10^3/ul (0.3-0.9); MONOCYTES % 8.9 % (0.0-11.0); NEUTROPHIL # 2.2 10^3/ul (1.6-7.5); NEUTROPHILS % 50.6 % (39.0-77.0); PLATELET COUNT 366 10^3/UL (140-415); RED BLOOD COUNT 3.43 10^6/ul (4.20-5.40); RED CELL DISTRIBUTION WIDTH 16.1 % (11.5-14.5); WHITE BLOOD COUNT 4.3 10^3/ul (4.8-10.8)
[2017-03-13] MEDS: ENOXAPARIN 100 MG/ML SYG SC SCH ×2 (08:43→20:34)
[2017-03-13 09:09] LABS: CALCIUM 8.2 mg/dl (8.4-10.2); CREATININE 0.57 mg/dl (0.44-1.00); POTASSIUM 3.6 mmol/L (3.5-5.1)
--- NOTE | 2017-03-13 12:09 | CONS ---
Date/Time of Note Date/Time of Note DATE: 03/13/17 TIME: 12:07 Assessment/Plan Assessment/Plan Additional Assessment/Plan Assessment and recommendations; 1. Patient admitted with shortness of breath due to central pulmonary embolus which is nonobstructive. 2. Patient clinically stable. 3. History of diabetes and hypertension. 4. Prior history of gastrectomy. Continue current treatment. Patient can be switched over to apixaban in about 48 hours. To be maintained on long-term lifelong anticoagulation. Consultation Date/Type/Reason Admit Date/Time Mar 10, 2017 at 18:01 Initial Consult Date 03/11/17 Type of Consultation: Pulmonary 24 HR Interval Summary Free Text/Dictation Patient's condition remains stable. Denies any shortness of breath, chest pain. Any coughing or wheezing. General exam; elderly woman, awake and alert. Currently in no distress. Exam/Review of Systems Vital Signs Vitals Vital Signs Date Time Temp Pulse Resp B/P Pulse Ox O2 Delivery O2 Flow Rate FiO2 03/13/17 07:45 98.3 84 18 114/55 95 03/10/17 20:23 Room Air Intake and Output 03/12/17 03/12/17 03/13/17 15:00 23:00 07:00 Intake Total 1980 ml Balance 1980 ml Exam HEENT exam; supple neck, no JVD. No lymphadenopathy. Midline trachea. No thyromegaly. Upper jaw is edentulous. Pupils are midsize and reactive to light. Chest exam; clear to auscultation. S1-S2 audible, no murmurs. Regular rhythm. Abdomen exam; soft, nontender. No organomegaly. Bowel sounds audible. There is a well-healed laparotomy scar. Extremity exam; no peripheral edema. 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 Results Result Diagram: 03/13/17 0745 03/13/17 0745 Results 24 hrs Laboratory Tests Test 03/12/17 12:27 03/12/17 17:05 03/12/17 20:17 03/13/17 07:45 Bedside Glucose 87 93 113 White Blood Count 4.3 L Red Blood Count 3.43 L Hemoglobin 10.4 L Hematocrit 33.3 L Mean Corpuscular Volume 97.1 Mean Corpuscular Hemoglobin 30.3 Mean Corpuscular Hemoglobin Concent 31.2 L Red Cell Distribution Width 16.1 H Platelet Count 366 Mean Platelet Volume 8.4 Neutrophils % 50.6 Lymphocytes % 35.2 Monocytes % 8.9 Eosinophils % 4.9 Basophils % 0.2 Nucleated Red Blood Cells % 0.0 Neutrophils # 2.2 Lymphocytes # 1.5 Monocytes # 0.4 Eosinophils # 0.2 Basophils # 0.0 Nucleated Red Blood Cells # 0.0 Sodium Level 139 Potassium Level 3.6 Chloride Level 105 Carbon Dioxide Level 26 Anion Gap 12 Blood Urea Nitrogen 4 L Creatinine 0.57 Glucose Level 85 Calcium Level 8.2 L Test 03/13/17 08:00 Bedside Glucose 80 Medications Medications Current Medications Ondansetron HCl (Zofran Inj) 4 mg Q6H PRN IV NAUSEA AND/OR VOMITING; Start at 19:00 Acetaminophen (Tylenol Tab) 650 mg Q6H PRN PO PAIN LEVEL 1-3 OR FEVER Last administered on 03/13/17 05:59; Admin Dose 650 MG; Start 03/10/17 at 19:00 Acetaminophen/ Hydrocodone Bitart ([place] (5/325)) 1 tab Q6H PRN PO MODERATE PAIN LEVEL 4-6 Last administered on 03/11/17 00:06; Admin Dose 1 TAB; Start 03/10/17 at 19:00 Morphine Sulfate (morphine) 2 mg Q4H PRN IV SEVERE PAIN LEVEL 7-10; Start at 19:00 Docusate Sodium (Colace) 100 mg Q12H PRN PO CONSTIPATION Last administered on 03/12/17 16:34; Admin Dose 100 MG; Start 03/10/17 at 19:00 Magnesium Hydroxide (Milk Of Mag) 30 ml DAILY PRN PO CONSTIPATION; Start 03/10 at 19:00 Sodium Biphosphate/ Sodium Phosphate (Fleet Enema) 133 ml DAILY PRN [place] CONSTIPATION; Start 03/10/17 at 19:00 Hydralazine HCl (Apresoline) 10 mg Q6H PRN IV ELEVATED BLOOD PRESSURE; Start 03/10/17 at 19:00 Nitroglycerin (Nitroglycerin (Sl Tab) 0.4 Mg) 1 tab Q5M PRN SL ANGINA; Start 03/10/17 at 19:00 Cyanocobalamin (Vitamin B12) 100 mcg DAILY PO Last administered on 03/13/17 08:37; Admin Dose 100 MCG; Start 03/11/17 at 09:00 Metoprolol Tartrate (Lopressor) 12.5 mg BID PO Last administered on 03/13/17 08:38; Admin Dose 12.5 MG; Start 03/10/17 at 21:00 Enoxaparin Sodium (Lovenox) 80 mg Q12 SC Last administered on 03/13/17 08:43 ; Admin Dose 80 MG; Start 03/11/17 at 06:00 Miscellaneous Information 1 ea NOTE XX ; Start 03/10/17 at 20:00 Glucose (Glutose) 15 gm Q15M PRN PO DECREASED GLUCOSE; Start 03/10/17 at 20:00 Glucose (Glutose) 22.5 gm Q15M PRN PO DECREASED GLUCOSE; Start 03/10/17 at 20: 00 Dextrose (D50w Syringe) 25 ml Q15M PRN IV DECREASED GLUCOSE; Start 03/10/17 at 20:00 Dextrose (D50w Syringe) 50 ml Q15M PRN IV DECREASED GLUCOSE; Start 03/10/17 at 20:00 Glucagon (Glucagen) 1 mg Q15M PRN IM DECREASED GLUCOSE; Start 03/10/17 at 20: 00 Glucose (Glutose) 15 gm Q15M PRN BUCCAL DECREASED GLUCOSE; Start 03/10/17 at 20:00 Pantoprazole (Protonix Tab) 40 mg DAILY@06 PO Last administered on 03/13/17 05:59; Admin Dose 40 MG; Start 03/13/17 at 06:00 Diagnostic Test (Pha) (Accu-Chek) 1 ea 02 XX ; Start 03/13/17 at 02:00 DEMETRIA HODGE Mar 13, 2017 12:09
[2017-03-13] MEDS: MAGNESIUM HYDROXIDE 30ML CUP PO PRN (12:10)
[2017-03-13 14:00] VITALS: BP 115/73; RESP 18
[2017-03-13] MEDS: DOCUSATE SODIUM 100 MG CAP PO PRN (18:34)
--- NOTE | 2017-03-13 19:21 | PN ---
Date/Time of Note Date/Time of Note DATE: 03/13/17 TIME: 19:20 Assessment/Plan VTE Prophylaxis VTE Prophylaxis Intervention: SCD's Lines/Catheters IV Catheter Type (from Nrsg): Saline Lock Urinary Cath still in place: No Assessment/Plan Assessment/Plan 66 yo F admitted for SOB, found to have saddle PE. sp pulm and vascular evals, no indication for clot removal cont LMWH, transition to PO ATC on Sunday-->will affirm with pulm CM cs for HH cont home meds possibly dc in AM Subjective 24 Hr Interval Summary Free Text/Dictation Doing well. Exam/Review of Systems Vital Signs Vitals Vital Signs Date Time Temp Pulse Resp B/P Pulse Ox O2 Delivery O2 Flow Rate FiO2 03/13/17 14:00 97.4 109 18 115/73 96 03/10/17 20:23 Room Air Intake and Output 03/12/17 03/12/17 03/13/17 15:00 23:00 07:00 Intake Total 1980 ml Balance 1980 ml Exam nad no mrg lungs clear abd soft no rashes Results Result Diagram: 03/13/17 0745 03/13/17 0745 Results 24 hrs Laboratory Tests Test 03/12/17 20:17 03/13/17 07:45 03/13/17 08:00 03/13/17 12:08 Bedside Glucose 113 80 94 White Blood Count 4.3 L Red Blood Count 3.43 L Hemoglobin 10.4 L Hematocrit 33.3 L Mean Corpuscular Volume 97.1 Mean Corpuscular Hemoglobin 30.3 Mean Corpuscular Hemoglobin Concent 31.2 L Red Cell Distribution Width 16.1 H Platelet Count 366 Mean Platelet Volume 8.4 Neutrophils % 50.6 Lymphocytes % 35.2 Monocytes % 8.9 Eosinophils % 4.9 Basophils % 0.2 Nucleated Red Blood Cells % 0.0 Neutrophils # 2.2 Lymphocytes # 1.5 Monocytes # 0.4 Eosinophils # 0.2 Basophils # 0.0 Nucleated Red Blood Cells # 0.0 Sodium Level 139 Potassium Level 3.6 Chloride Level 105 Carbon Dioxide Level 26 Anion Gap 12 Blood Urea Nitrogen 4 L Creatinine 0.57 Glucose Level 85 Calcium Level 8.2 L Test 03/13/17 17:18 Bedside Glucose 80 Medications Medications Current Medications Ondansetron HCl (Zofran Inj) 4 mg Q6H PRN IV NAUSEA AND/OR VOMITING Last administered on 03/13/17 18:36; Admin Dose 4 MG; Start 03/10/17 at 19:00 Acetaminophen (Tylenol Tab) 650 mg Q6H PRN PO PAIN LEVEL 1-3 OR FEVER Last administered on 03/13/17 05:59; Admin Dose 650 MG; Start 03/10/17 at 19:00 Acetaminophen/ Hydrocodone Bitart ([place] (5/325)) 1 tab Q6H PRN PO MODERATE PAIN LEVEL 4-6 Last administered on 03/11/17 00:06; Admin Dose 1 TAB; Start 03/10/17 at 19:00 Morphine Sulfate (morphine) 2 mg Q4H PRN IV SEVERE PAIN LEVEL 7-10; Start at 19:00 Docusate Sodium (Colace) 100 mg Q12H PRN PO CONSTIPATION Last administered on 03/13/17 18:34; Admin Dose 100 MG; Start 03/10/17 at 19:00 Magnesium Hydroxide (Milk Of Mag) 30 ml DAILY PRN PO CONSTIPATION Last administered on 03/13/17 12:10; Admin Dose 30 ML; Start 03/10/17 at 19:00 Sodium Biphosphate/ Sodium Phosphate (Fleet Enema) 133 ml DAILY PRN [place] CONSTIPATION; Start 03/10/17 at 19:00 Hydralazine HCl (Apresoline) 10 mg Q6H PRN IV ELEVATED BLOOD PRESSURE; Start 03/10/17 at 19:00 Nitroglycerin (Nitroglycerin (Sl Tab) 0.4 Mg) 1 tab Q5M PRN SL ANGINA; Start 03/10/17 at 19:00 Cyanocobalamin (Vitamin B12) 100 mcg DAILY PO Last administered on 03/13/17 08:37; Admin Dose 100 MCG; Start 03/11/17 at 09:00 Metoprolol Tartrate (Lopressor) 12.5 mg BID PO Last administered on 03/13/17 08:38; Admin Dose 12.5 MG; Start 03/10/17 at 21:00 Enoxaparin Sodium (Lovenox) 80 mg Q12 SC Last administered on 03/13/17 08:43 ; Admin Dose 80 MG; Start 03/11/17 at 06:00 Miscellaneous Information 1 ea NOTE XX ; Start 03/10/17 at 20:00 Glucose (Glutose) 15 gm Q15M PRN PO DECREASED GLUCOSE; Start 03/10/17 at 20:00 Glucose (Glutose) 22.5 gm Q15M PRN PO DECREASED GLUCOSE; Start 03/10/17 at 20: 00 Dextrose (D50w Syringe) 25 ml Q15M PRN IV DECREASED GLUCOSE; Start 03/10/17 at 20:00 Dextrose (D50w Syringe) 50 ml Q15M PRN IV DECREASED GLUCOSE; Start 03/10/17 at 20:00 Glucagon (Glucagen) 1 mg Q15M PRN IM DECREASED GLUCOSE; Start 03/10/17 at 20: 00 Glucose (Glutose) 15 gm Q15M PRN BUCCAL DECREASED GLUCOSE; Start 03/10/17 at 20:00 Pantoprazole (Protonix Tab) 40 mg DAILY@06 PO Last administered on 03/13/17t 05:59; Admin Dose 40 MG; Start 03/13/17 at 06:00 Diagnostic Test (Pha) (Accu-Chek) 1 ea 02 XX ; Start 03/13/17 at 02:00 MARA FREEMAN MD Mar 13, 2017 19:21
[2017-03-13 19:28] VITALS: BP 128/85; RESP 20
--- NOTE | 2017-03-13 20:18 | PN ---
Date/Time of Note Date/Time of Note DATE: 03/13/17 TIME: 20:15 Assessment/Plan Lines/Catheters IV Catheter Type (from [facility]): Saline Lock Ho in Place (from [facility]): No Assessment/Plan Chief Complaint/Hosp Course -Pulmonary embolism: It seems the patient has sustained a large saddle embolus that currently is without any respiratory distress. From a vascular surgery standpoint, no further intervention would be recommended, such as thrombectomy or thrombolysis as the patient has no current respiratory distress or cardiac compromise. Recommend continuing with our current anticoagulation management for 6 monthsand will continue to monitor the patient closely as outpt. -It seems that this may have been a provoked circumstance in which the patient had not been ambulatory post abdominal surgery. -Optimize vascular status. -Discussed findings, plan and management with the patient and she understands. -Thank you for allowing us to partake in the care of your patient. Please call with any questions. Problems: Subjective 24 Hr Interval Summary NO NEW VASCULAR EVENTS OVERNIGHT Exam/Review of Systems Vital Signs Vitals Vital Signs Date Time Temp Pulse Resp B/P Pulse Ox O2 Delivery O2 Flow Rate FiO2 03/13/17 19:28 98.9 98 20 128/85 94 03/10/17 20:23 Room Air Intake and Output 03/12/17 03/12/17 03/13/17 15:00 23:00 07:00 Intake Total 1980 ml Balance 1980 ml Exam Free Text/Dictation GENERAL: Alert and oriented x3, S1S2 present PULMONARY: Coarse breath sounds bilaterally, some decreased breath sounds at the bases. ABDOMEN: Soft, nontender, nondistended. Bowel sounds positive. Surgical scar well healed. LOWER EXTREMITIES: Palpable femoral pulse, nonpalpable pedal pulse. Motor, sensory intact. Cap refill 3 seconds. Results Result Diagram: 03/13/17 0745 03/13/17 0745 MELA ERVIN MD Mar 13, 2017 20:18
--- NOTE | 2017-03-13 23:38 | CONS ---
Date/Time of Note Date/Time of Note DATE: 03/13/17 TIME: 23:34 Assessment/Plan Assessment/Plan Problems: (1) Lower leg edema (2) Palpitations Status: Acute (3) Pulmonary embolism Status: Acute Qualifiers: Qualified Code: I26.92 - Acute saddle pulmonary embolism without acute cor pulmonale (4) Hypertension Status: Acute Qualifiers: Qualified Code: I10 - Essential hypertension Additional Assessment/Plan I recommendation is heel protectors for the patient while she is in the hospital. Moisturize skin daily. Patient will be followed in-house. Thank you again for involving me in the care of this patient. If you have any questions regarding this case, please feel free to contact me at pager: or reach me at mobile: [phone]. Consultation Date/Type/Reason Admit Date/Time Mar 10, 2017 at 18:01 Date of Consultation: Mar 13, 2017 Type of Consultation: Foot and ankle surgery Hx of Present Illness Thank you very much for involving me in the care of this patient. As you very well know this is a 66-year-old female patient with multiple medical problems including diabetes mellitus, hypertension, obesity, mesenteric ischemia, history of lower extremity cellulitis who presented to the hospital because of complaints of palpitations. I was consulted for evaluation of the lower extremities. Constitutional: no complaints Skin: no complaints Social History Smoking Status: Never smoker Exam/Review of Systems Vital Signs Vitals Vital Signs Date Time Temp Pulse Resp B/P Pulse Ox O2 Delivery O2 Flow Rate FiO2 03/13/17 19:28 98.9 98 20 128/85 94 03/10/17 20:23 Room Air Intake and Output 03/12/17 03/12/17 03/13/17 15:00 23:00 07:00 Intake Total 1980 ml Balance 1980 ml Exam Morbidly obese female in no acute distress. Bilateral lower leg edema noted. No active open wounds present. Decreased protective sensation to sharp, dull, vibratory temperature stimuli noted. Normal deep tendon reflexes. Dorsalis pedis and posterior tibial pulses are palpable bilateral lower extremity. Labs reviewed. Results Result Diagram: 03/13/17 0745 03/13/17 0745 Results 24 hrs Laboratory Tests Test 03/13/17 07:45 03/13/17 08:00 03/13/17 12:08 03/13/17 17:18 White Blood Count 4.3 L Red Blood Count 3.43 L Hemoglobin 10.4 L Hematocrit 33.3 L Mean Corpuscular Volume 97.1 Mean Corpuscular Hemoglobin 30.3 Mean Corpuscular Hemoglobin Concent 31.2 L Red Cell Distribution Width 16.1 H Platelet Count 366 Mean Platelet Volume 8.4 Neutrophils % 50.6 Lymphocytes % 35.2 Monocytes % 8.9 Eosinophils % 4.9 Basophils % 0.2 Nucleated Red Blood Cells % 0.0 Neutrophils # 2.2 Lymphocytes # 1.5 Monocytes # 0.4 Eosinophils # 0.2 Basophils # 0.0 Nucleated Red Blood Cells # 0.0 Sodium Level 139 Potassium Level 3.6 Chloride Level 105 Carbon Dioxide Level 26 Anion Gap 12 Blood Urea Nitrogen 4 L Creatinine 0.57 Glucose Level 85 Calcium Level 8.2 L Bedside Glucose 80 94 80 Test 03/13/17 20:30 Bedside Glucose 171 Medications Medications Current Medications Ondansetron HCl (Zofran Inj) 4 mg Q6H PRN IV NAUSEA AND/OR VOMITING Last administered on 03/13/17 18:36; Admin Dose 4 MG; Start 03/10/17 at 19:00 Acetaminophen (Tylenol Tab) 650 mg Q6H PRN PO PAIN LEVEL 1-3 OR FEVER Last administered on 03/13/17 05:59; Admin Dose 650 MG; Start 03/10/17 at 19:00 Acetaminophen/ Hydrocodone Bitart ([place] (5/325)) 1 tab Q6H PRN PO MODERATE PAIN LEVEL 4-6 Last administered on 03/11/17 00:06; Admin Dose 1 TAB; Start 03/10/17 at 19:00 Morphine Sulfate (morphine) 2 mg Q4H PRN IV SEVERE PAIN LEVEL 7-10; Start at 19:00 Docusate Sodium (Colace) 100 mg Q12H PRN PO CONSTIPATION Last administered on 03/13/17 18:34; Admin Dose 100 MG; Start 03/10/17 at 19:00 Magnesium Hydroxide (Milk Of Mag) 30 ml DAILY PRN PO CONSTIPATION Last administered on 03/13/17 12:10; Admin Dose 30 ML; Start 03/10/17 at 19:00 Sodium Biphosphate/ Sodium Phosphate (Fleet Enema) 133 ml DAILY PRN [place] CONSTIPATION; Start 03/10/17 at 19:00 Hydralazine HCl (Apresoline) 10 mg Q6H PRN IV ELEVATED BLOOD PRESSURE; Start 03/10/17 at 19:00 Nitroglycerin (Nitroglycerin (Sl Tab) 0.4 Mg) 1 tab Q5M PRN SL ANGINA; Start 03/10/17 at 19:00 Cyanocobalamin (Vitamin B12) 100 mcg DAILY PO Last administered on 03/13/17 08:37; Admin Dose 100 MCG; Start 03/11/17 at 09:00 Metoprolol Tartrate (Lopressor) 12.5 mg BID PO Last administered on 03/13/17 20:32; Admin Dose 12.5 MG; Start 03/10/17 at 21:00 Enoxaparin Sodium (Lovenox) 80 mg Q12 SC Last administered on 03/13/17 20:34 ; Admin Dose 80 MG; Start 03/11/17 at 06:00 Miscellaneous Information 1 ea NOTE XX ; Start 03/10/17 at 20:00 Glucose (Glutose) 15 gm Q15M PRN PO DECREASED GLUCOSE; Start 03/10/17 at 20:00 Glucose (Glutose) 22.5 gm Q15M PRN PO DECREASED GLUCOSE; Start 03/10/17 at 20: 00 Dextrose (D50w Syringe) 25 ml Q15M PRN IV DECREASED GLUCOSE; Start 03/10/17 at 20:00 Dextrose (D50w Syringe) 50 ml Q15M PRN IV DECREASED GLUCOSE; Start 03/10/17 at 20:00 Glucagon (Glucagen) 1 mg Q15M PRN IM DECREASED GLUCOSE; Start 03/10/17 at 20: 00 Glucose (Glutose) 15 gm Q15M PRN BUCCAL DECREASED GLUCOSE; Start 03/10/17 at 20:00 Pantoprazole (Protonix Tab) 40 mg DAILY@06 PO Last administered on 03/13/17 05:59; Admin Dose 40 MG; Start 03/13/17 at 06:00 Diagnostic Test (Pha) (Accu-Chek) 1 ea 02 XX ; Start 03/13/17 at 02:00 ISMA LORD DPM Mar 13, 2017 23:38
[2017-03-14 01:51] VITALS: BP 116/63; RESP 18
[2017-03-14] MEDS: ACCUCHECK 2 AM XX SCH (02:00)
[2017-03-14] MEDS: PANTOPRAZOLE (EC) 40 MG TAB PO SCH (05:41)
[2017-03-14 06:41] LABS: BASOPHILS % 0.5 % (0.0-2.0); EOSINOPHILS # 0.2 10^3/ul (0.0-0.5); EOSINOPHILS % 5.8 % (0.0-7.0); HEMATOCRIT 33.9 % (37.0-47.0); HEMOGLOBIN 10.4 g/dl (12.0-16.0); LYMPHOCYTES # 1.3 10^3/ul (0.8-2.9); LYMPHOCYTES % 33.9 % (15.0-51.0); MEAN CORPUSCULAR HEMOGLOBIN 29.8 pg (29.0-33.0); MEAN CORPUSCULAR HGB CONC 30.7 g/dl (32.0-37.0); MEAN CORPUSCULAR VOLUME 97.1 fl (82.0-101.0); MEAN PLATELET VOLUME 8.2 fl (7.4-10.4); MONOCYTE # 0.4 10^3/ul (0.3-0.9); MONOCYTES % 9.1 % (0.0-11.0); NEUTROPHILS % 50.4 % (39.0-77.0); PLATELET COUNT 344 10^3/UL (140-415); RED BLOOD COUNT 3.49 10^6/ul (4.20-5.40); RED CELL DISTRIBUTION WIDTH 16.3 % (11.5-14.5)
[2017-03-14 07:19] VITALS: BP 100/54; RESP 16
[2017-03-14 07:19] LABS: CALCIUM 8.2 mg/dl (8.4-10.2); CREATININE 0.57 mg/dl (0.44-1.00); POTASSIUM 3.6 mmol/L (3.5-5.1)
[2017-03-14] MEDS: Insulin NOVOLOG SS MILD Algorithm (SS with meals and bedtime) SC SCH ×2 (07:56→12:00)
[2017-03-14] MEDS: CYANOCOBALAMIN 100 MCG TAB PO SCH (07:57)
[2017-03-14] MEDS: METOPROLOL 25 MG TAB PO SCH (07:57)
[2017-03-14] MEDS: MAGNESIUM HYDROXIDE 30ML CUP PO PRN (07:58)
[2017-03-14] MEDS: ENOXAPARIN 100 MG/ML SYG SC SCH (08:09)
[2017-03-14] MEDS: ACETAMINOPHEN 325 MG TAB PO PRN (10:26)
[2017-03-14] MEDS ORDERED: APIX5TAB PO ×2 (10:29→10:31)
--- NOTE | 2017-03-14 12:10 | CONS ---
Date/Time of Note Date/Time of Note DATE: 03/14/17 TIME: 12:07 Assessment/Plan Assessment/Plan Additional Assessment/Plan Assessment and recommendations; 1. Patient admitted with episodes of dizziness and chest discomfort discovered to have several nonobstructive pulmonary embolus. Patient clinically stable. 2. History of prior gastrectomy. 3. History of diabetes and hypertension. Patient can be switched over to apixaban to be maintained lifelong. Consider discharge. Consultation Date/Type/Reason Admit Date/Time Mar 10, 2017 at 18:01 Initial Consult Date 03/11/17 Type of Consultation: Pulmonary/critical care 24 HR Interval Summary Free Text/Dictation Patient's condition is stable. Remains awake alert. Denies any shortness of breath. Chest pain. General exam; elderly woman, awake and alert. Currently in no distress. Currently sitting in a chair by bedside. Exam/Review of Systems Vital Signs Vitals Vital Signs Date Time Temp Pulse Resp B/P Pulse Ox O2 Delivery O2 Flow Rate FiO2 03/14/17 07:19 98.2 83 16 100/54 100 03/10/17 20:23 Room Air Intake and Output 03/13/17 03/13/17 03/14/17 15:00 23:00 07:00 Intake Total 240 ml Balance 240 ml Exam HEENT exam; supple neck, no JVD. No lymphadenopathy. Midline trachea. No thyromegaly. Pharynx is clear. Chest exam; clear to auscultation. S1-S2 audible, no murmurs. Regular rhythm. Abdomen exam; soft, there is a well-healed laparotomy scar. Bowel sounds audible. Extremity exam; no peripheral edema. SURGICAL RN exam; no focal deficit. Results Result Diagram: 03/14/17 0542 03/14/17 0542 Results 24 hrs Laboratory Tests Test 03/13/17 12:08 03/13/17 17:18 03/13/17 20:30 03/14/17 05:42 Bedside Glucose 94 80 171 White Blood Count 4.0 L Red Blood Count 3.49 L Hemoglobin 10.4 L Hematocrit 33.9 L Mean Corpuscular Volume 97.1 Mean Corpuscular Hemoglobin 29.8 Mean Corpuscular Hemoglobin Concent 30.7 L Red Cell Distribution Width 16.3 H Platelet Count 344 Mean Platelet Volume 8.2 Neutrophils % 50.4 Lymphocytes % 33.9 Monocytes % 9.1 Eosinophils % 5.8 Basophils % 0.5 Nucleated Red Blood Cells % 0.0 Neutrophils # 2.0 Lymphocytes # 1.3 Monocytes # 0.4 Eosinophils # 0.2 Basophils # 0.0 Nucleated Red Blood Cells # 0.0 Sodium Level 141 Potassium Level 3.6 Chloride Level 106 Carbon Dioxide Level 27 Anion Gap 12 Blood Urea Nitrogen 6 L Creatinine 0.57 Glucose Level 75 Calcium Level 8.2 L Test 03/14/17 07:55 Bedside Glucose 113 Medications Medications Current Medications Ondansetron HCl (Zofran Inj) 4 mg Q6H PRN IV NAUSEA AND/OR VOMITING Last administered on 03/13/17 18:36; Admin Dose 4 MG; Start 03/10/17 at 19:00 Acetaminophen (Tylenol Tab) 650 mg Q6H PRN PO PAIN LEVEL 1-3 OR FEVER Last administered on 03/14/17 10:26; Admin Dose 650 MG; Start 03/10/17 at 19:00 Acetaminophen/ Hydrocodone Bitart ([place] (5/325)) 1 tab Q6H PRN PO MODERATE PAIN LEVEL 4-6 Last administered on 03/11/17 00:06; Admin Dose 1 TAB; Start 03/10/17 at 19:00 Morphine Sulfate (morphine) 2 mg Q4H PRN IV SEVERE PAIN LEVEL 7-10; Start at 19:00 Docusate Sodium (Colace) 100 mg Q12H PRN PO CONSTIPATION Last administered on 03/13/17 18:34; Admin Dose 100 MG; Start 03/10/17 at 19:00 Magnesium Hydroxide (Milk Of Mag) 30 ml DAILY PRN PO CONSTIPATION Last administered on 03/14/17 07:58; Admin Dose 30 ML; Start 03/10/17 at 19:00 Sodium Biphosphate/ Sodium Phosphate (Fleet Enema) 133 ml DAILY PRN [place] CONSTIPATION; Start 03/10/17 at 19:00 Hydralazine HCl (Apresoline) 10 mg Q6H PRN IV ELEVATED BLOOD PRESSURE; Start 03/10/17 at 19:00 Nitroglycerin (Nitroglycerin (Sl Tab) 0.4 Mg) 1 tab Q5M PRN SL ANGINA; Start 03/10/17 at 19:00 Cyanocobalamin (Vitamin B12) 100 mcg DAILY PO Last administered on 03/14/17 07:57; Admin Dose 100 MCG; Start 03/11/17 at 09:00 Metoprolol Tartrate (Lopressor) 12.5 mg BID PO Last administered on 03/14/17 07:57; Admin Dose 12.5 MG; Start 03/10/17 at 21:00 Enoxaparin Sodium (Lovenox) 80 mg Q12 SC Last administered on 03/14/17 08:09 ; Admin Dose 80 MG; Start 03/11/17 at 06:00 Miscellaneous Information 1 ea NOTE XX ; Start 03/10/17 at 20:00 Glucose (Glutose) 15 gm Q15M PRN PO DECREASED GLUCOSE; Start 03/10/17 at 20:00 Glucose (Glutose) 22.5 gm Q15M PRN PO DECREASED GLUCOSE; Start 03/10/17 at 20: 00 Dextrose (D50w Syringe) 25 ml Q15M PRN IV DECREASED GLUCOSE; Start 03/10/17 at 20:00 Dextrose (D50w Syringe) 50 ml Q15M PRN IV DECREASED GLUCOSE; Start 03/10/17 at 20:00 Glucagon (Glucagen) 1 mg Q15M PRN IM DECREASED GLUCOSE; Start 03/10/17 at 20: 00 Glucose (Glutose) 15 gm Q15M PRN BUCCAL DECREASED GLUCOSE; Start 03/10/17 at 20:00 Pantoprazole (Protonix Tab) 40 mg DAILY@06 PO Last administered on 03/14/17 05:41; Admin Dose 40 MG; Start 03/13/17 at 06:00 Diagnostic Test (Pha) (Accu-Chek) 1 ea 02 XX ; Start 03/13/17 at 02:00 DEMETRIA HODGE Mar 14, 2017 12:10
--- NOTE | 2017-03-14 13:30 | PDOCDIS ---
Discharge Instructions CONDITION Patient Condition: Stable HOME CARE INSTRUCTIONS: Special Diet: CARB CONTROL FOLLOW UP/APPOINTMENTS Follow-up Plan Dr Nj April 03 at [address] [address] [place], [place] [id number] [phone] OTHER ORDERS: Other Orders: Hable con cooper mdico habitual dentro de 4 semanas para obtener ms anticoagulantes. Mientras discutimos, estos anticoagulantes ayudarn a evitar que crezca el co gulo de juanita, sin embargo, aumentarn cooper riesgo de sangrado. si te golpeas la cecelia o comienzas a sangrar desde cualquier parte de tu cuerpo que no se detenga, rao el ER ms cercano de inmediato. Pregntele a cooper mdico habitual si debe consultar a un hematlogo / especialista en juanita para realizar otras pruebas para encontrar la causa de cooper cogulo de juanita Lleve todos los documentos de cooper hospital a damion tal. MARA FREEMAN MD Mar 14, 2017 13:30
--- NOTE | 2017-03-14 13:36 | DS ---
Date/Time of Note Date/Time of Note DATE: 03/14/17 TIME: 13:34 Discharge Summary Admission/Discharge Info Admit Date/Time Mar 10, 2017 at 18:01 Discharge Date/Time Discharge Diagnosis saddle pulmonary embolism Patient Condition: Stable Consults pulmonology, vascular surgery Procedures 10.14 bl LE dopplers neg for DVT CTA chest 10. FINDINGS: Noted is a saddle embolism extending into both right and left main pulmonary arteries. There is only mild compromise of these vessels. There is partially occlusive thrombus noted in the first and second order branches of the right upper lobe, middle lobe and lower lobe pulmonary arteries and in a first order branch of the left upper lobe pulmonary artery. The main pulmonary artery measures 3.7 cm in diameter. This is compatible with pulmonary hypertension. Thoracic aorta is without evidence of aneurysm or dissection. No hilar or mediastinal adenopathy or mass is present. There is a large hiatal hernia. Tiny right pleural effusion is seen. There is cardiomegaly. There is atelectasis at the lung bases. No alveolar infiltrate is present. There is a 2.2 x 1.3 cm pleural-based mass like density on the dorsal aspect of the right upper lobe likely representing round atelectasis. No pneumothorax is identified. Noted is enlarged fatty liver. No upper abdominal or adrenal mass is visualized. The osseous structures appear normal. IMPRESSION: Saddle embolism with bilateral pulmonary emboli as above. No aortic dissection or aneurysm. Bibasilar atelectasis. Presumed right upper lobe round atelectasis. Follow-up is recommended. Small right pleural effusion. Hiatal hernia. Enlarged fatty liver. Hx of Present Illness A 66-year-old female with past medical history of recent gastric resection and laparotomy for incarcerated hernia a few months ago and mesenteric ischemia, obesity, hypertension, diabetes, history of lower extremity cellulitis, who came in today because of complaints of palpitations, also thinking that her heart rate was fast, also uncontrolled high blood pressure. The patient was recently discharged from rehab center on March 05, 2017, went home, has been ambulating and using a walker, but she says she has been either in the hospital or rehab center for last 5 months given her recent gastric resection surgery for incarcerated hernia and mesenteric ischemia, and feels like she has been "lying down for a long time." Denies any long trips or plane rides. No dysuria, no diarrhea, constipation, or nausea. She did have some mild vomiting, nonbilious, nonbloody. Mild chest pressure is positive and mild shortness of breath is positive as well, but denies any fevers or chills. When she came in, she had a lower extremity Doppler study performed that showed no DVTs in either lower extremity. She did have a CTA performed that does show positive saddle embolism with bilateral pulmonary emboli, but no dissection or aneurysm, and she was given a dose of Lovenox 1 mg/kg in the ER. Hospital Course Pt started on full anticoagulation with LMWH for her PE. Given pt hemodynamically stable, vascular surgery did not think clot resection was indicated. Pt able to ambulate on RA. She is discharged home with a 4 week supply of oral Eliquis. Risks/precautions of ATC discussed with patient prior to discharge-->notably risk of ICH and overall systemic increased bleeding risk. Pt advised to go to ER if she hits or head or has any bleeding she is unable to control. Re etio of pt's VTE, thought to be recent immobility from prolonged hospital/ physical rehab stays. pt advised to ask PCP if she should be referred to a instrument and control service person for further eval. Pulm team advising indefinite ATC. Defer to PCP if he wants to stop it at some point. PCP's office ask that they not be faxed a copy of this dc summary and that a copy be given to pt to bring to appt. Copy of this summary given to pt prior to discharge Home Meds Active Scripts Apixaban* (Eliquis*) 5 Mg Tablet, 5 MG PO BID for 21 Days, #42 TAB To be started after a week of the higher dose pills Prov:MARA FREEMAN MD 03/14/17 Apixaban* (Eliquis*) 5 Mg Tablet, 10 MG PO BID for 7 Days, #14 TAB Prov:MARA FREEMAN MD 03/14/17 Reported Medications Acetaminophen* (Acetaminophen*) 500 MG Extra Strength Tablet, 1000 MG PO Q6H Y for PAIN AND OR ELEVATED TEMP, TAB 03/10/17 Metoprolol Tartrate* (Lopressor*) 25 Mg Tab, 12.5 MG PO BID, #60 TAB 03/10/17 Cyanocobalamin* (Vitamin B12*) 100 Mcg Tab, 100 MCG PO DAILY, TAB 03/10/17 Omeprazole* (Prilosec*) 40 Mg Capsule., 40 MG PO DAILY AC MEAL, CAP 04/23/14 Discontinued Reported Medications Cyclosporine (RESTASIS) 1 Each Droperette, 1 DROP BOTH EYES Q12, #1 BOX 06/02/16 Calcium Carbonate/Vitamin D3 (Calcium 600 + Vit D3 400 Tab) 1 Each Tablet, 1 EACH PO BID, TAB 06/02/16 Ibuprofen* (Ibuprofen*) 600 Mg Tablet, 600 MG PO Q6H, TAB 06/02/16 Metformin Hcl* (Metformin Hcl*) 500 Mg Tablet, 500 MG PO BID WITH MEALS, TAB 04/23/14 Solifenacin* (Vesicare*) 10 Mg Tablet, 10 MG PO DAILY, TAB 04/23/14 Discontinued Scripts Tramadol HCl (Tramadol HCl) 50 Mg Tablet, 50 MG PO Q6H Y for PAIN, #30 TAB Prov:ELENA CUEVA 06/06/16 Doxycycline Monohydrate* (Doxycycline Monohydrate*) 100 Mg Tablet, 100 MG PO BID for 7 Days, TAB Prov:ELENA CUEVA 06/06/16 Follow-up Plan Dr Nj April [address] [place] [id number] [phone] Primary Care Provider Jaden Nj MD Time spent on discharge: > 30 minutes Pending Labs Laboratory Tests Test 03/13/17 17:18 03/13/17 20:30 03/14/17 05:42 03/14/17 07:55 Bedside Glucose 80mg/dL (70-220) 171mg/dL (70-220) 113mg/dL (70-220) White Blood Count 4.010^3/ul (4.8-10.8) Red Blood Count 3.4910^6/ul (4.20-5.40) Hemoglobin 10.4g/dl (12.0-16.0) Hematocrit 33.9% (37.0-47.0) Mean Corpuscular Volume 97.1fl (82.0-101.0) Mean Corpuscular Hemoglobin 29.8pg (29.0-33.0) Mean Corpuscular Hemoglobin Concent 30.7g/dl (32.0-37.0) Red Cell Distribution Width 16.3% (11.5-14.5) Platelet Count 78386^3/UL (140-415) Mean Platelet Volume 8.2fl (7.4-10.4) Neutrophils % 50.4% (39.0-77.0) Lymphocytes % 33.9% (15.0-51.0) Monocytes % 9.1% (0.0-11.0) Eosinophils % 5.8% (0.0-7.0) Basophils % 0.5% (0.0-2.0) Nucleated Red Blood Cells % 0.0/100WBC (0.0-0.0) Neutrophils # 2.010^3/ul (1.6-7.5) Lymphocytes # 1.310^3/ul (0.8-2.9) Monocytes # 0.410^3/ul (0.3-0.9) Eosinophils # 0.210^3/ul (0.0-0.5) Basophils # 0.010^3/ul (0.0-0.1) Nucleated Red Blood Cells # 0.010^3/ul (0.0-0.0) Sodium Level 141mmol/L (135-144) Potassium Level 3.6mmol/L (3.5-5.1) Chloride Level 106mmol/L (97-110) Carbon Dioxide Level 27mmol/L (21-31) Anion Gap 12 (8-16) Blood Urea Nitrogen 6mg/dl (7-20) Creatinine 0.57mg/dl (0.44-1.00) Glucose Level 75mg/dl (70-220) Calcium Level 8.2mg/dl (8.4-10.2) Test 03/14/17 12:08 Bedside Glucose 128mg/dL (70-220) MARA FREEMAN MD Mar 14, 2017 13:36
[2017-03-14 13:49] VITALS: BP 100/71; RESP 18
== END 2017-03-14 16:20 | disposition home or self-care (01) | DRG 176 ==
LOC: E/R 12:56 → MS4 18:01 → MS2 03-13 02:53
PROVIDERS: ADMIT Internal Medicine; ATTEND Internal Medicine
DX: I26.92 Saddle embolus of pulmonary artery without acute cor pulmonale (principal); I27.20 Pulmonary hypertension, unspecified; K76.0 Fatty (change of) liver, not elsewhere classified; J98.11 Atelectasis; I10 Essential (primary) hypertension; E11.9 Type 2 diabetes mellitus without complications; Z79.84 Long term (current) use of oral hypoglycemic drugs; E66.9 Obesity, unspecified; Z68.32 Body mass index [BMI] 32.0-32.9, adult; K44.9 Diaphragmatic hernia without obstruction or gangrene
CPT/HCPCS: 36415; 71275; 74177; 80048; 80053; 80061; 81001; 82962; 83036; 83690; 83735; 84100; 84439; 84443; 84484; 85025; 85610; 85730; 93970; 96372; 96374; 96375; 97116; 97162; 97530; J1650; J1815; J1885; J1956; J2405; J3420; J7040; Q9967

== ENCOUNTER 2017-03-23 23:47 | Emergency (ER) | payer OTHER ==
[~2017-03-23] VITALS: Ht 162.6 cm; Wt 80.9 kg
[~2017-03-23 23:47] MED LIST changes: +ACET-141 PO; +APIX5TAB PO; -CALC-780 PO; +CYAN100 PO; -CYCL1DRO BOTH EYES; -DOXY-220 PO; -IBUP-1542 PO; -METF500T4 PO; +METO-448 PO; -SOLI10TA5 PO; -TRAM50TA2 PO
[2017-03-23 23:50] VITALS: Ht 162.6 cm; Wt 80.9 kg
[2017-03-24] MEDS ORDERED: ONDANSETRON 4 MG INJ IV STA (02:17)
[2017-03-24] MEDS ORDERED: HYDROmorphONE 1 MG/ML SYG IV STA (02:17)
[2017-03-24] MEDS ORDERED: SOD CHLORIDE 0.9% 1,000 ML IV STA (02:17)
--- NOTE | 2017-03-24 03:14 | ERD ---
ER Documentation Chief Complaint Chief Complaint abd pain, back pain, both foot swelling, body aches HPI 66-year-old woman with a recent history of saddle pulmonary embolism started on apixaban complains of low back pain and diffuse mild abdominal pain 1 day. She has been using her medications as prescribed and states she has a long history of similar back pain as well as this abdominal pain. Her abdominal pain is nonexertional nonradiating without obvious precipitating or alleviating factors. Patient denies chest pain or shortness of breath. ROS All systems reviewed and are negative except as per history of present illness. Medications Home Meds Active Scripts Cephalexin* (Cephalexin*) 500 Mg Capsule, 500 MG PO Q8, #21 CAP Prov:DELORES SCALES MD 03/24/17 Naproxen* (Naprosyn*) 500 Mg Tablet, 500 MG PO BID Y for PAIN AND/OR INFLAMMATION, #30 TAB Prov:DELORES SCALES MD 03/24/17 Apixaban* (Eliquis*) 5 Mg Tablet, 10 MG PO BID for 7 Days, #14 TAB Prov:AMRA FREEMAN MD 03/14/17 Reported Medications Acetaminophen* (Acetaminophen*) 500 MG Extra Strength Tablet, 1000 MG PO Q6H Y for PAIN AND OR ELEVATED TEMP, TAB 03/10/17 Metoprolol Tartrate* (Lopressor*) 25 Mg Tab, 12.5 MG PO BID, #60 TAB 03/10/17 Cyanocobalamin* (Vitamin B12*) 100 Mcg Tab, 100 MCG PO DAILY, TAB 03/10/17 Omeprazole* (Prilosec*) 40 Mg Capsule.dr, 40 MG PO DAILY AC MEAL, CAP 04/23/14 Discontinued Scripts Apixaban* (Eliquis*) 5 Mg Tablet, 5 MG PO BID for 21 Days, #42 TAB To be started after a week of the higher dose pills Prov:MARA FREEMAN MD 03/14/17 Allergies Allergies: Coded Allergies: No Known Drug Allergies (Verified Allergy, Unknown, 06/02/16) PMhx/Soc Gastric resection and laparotomy, incarcerated hernia previously, obesity, hypertension, diabetes mellitus, recent saddle pulmonary embolism currently using apixaban therapy, chronic back pain, hypertension History of Surgery: Yes ("70% of stomach and intestines removed") Anesthesia Reaction: No Hx Neurological Disorder: No Hx Respiratory Disorders: No Hx Cardiac Disorders: No Hx Psychiatric Problems: No Hx Miscellaneous Medical Probl: No Hx Alcohol Use: No Hx Substance Use: No Hx Tobacco Use: No Smoking Status: Never smoker FmHx Family History: No diabetes Physical Exam Vitals Vital Signs Date Time Temp Pulse Resp B/P Pulse Ox O2 Delivery O2 Flow Rate FiO2 03/24/17 05:19 98.5 98 16 115/62 95 Room Air 03/24/17 00:19 96 Room Air 03/23/17 23:50 99.0 116 20 116/70 96 Physical Exam GENERAL: Well-developed, well-nourished, mild discomfort, afebrile HEENT: Moist mucous membranes, pink conjunctiva, no cervical spine tenderness or step-off deformities, no goiter, no jaundice or icterus, extraocular movements intact without pain. No submandibular induration, and no pharyngeal erythema NEURO: Alert and oriented 3, cranial nerves II through XII intact bilaterally, pupils equal round reactive to light, no focal deficits or facial asymmetry, sensation intact distally Strength 5/5 in upper and lower extremities bilaterally CARDIAC: Tachycardic and regular, no murmurs rubs or gallops LUNGS: Clear bilaterally no wheezing crackles or stridor ABDOMEN: Soft nontender, no guarding, no rigidity, no rebound, no psoas sign no obturator sign. Normoactive bowel sounds SKIN: Warm and dry to touch, no abrasions, contusions, or hematomas, no lacerations, no ecchymosis, no target lesions, and without ulcers EXTREMITIES: No clubbing cyanosis or edema, calves are bilaterally symmetrical, no Homans sign, no popliteal cord sign. Distal pulses equal and bilateral PSYCH: Normal affect without agitation or irritability Result Diagram: 03/24/1732903/24/17329 Results 24 hrs Laboratory Tests Test 03/24/17 02:00 03/24/17 02:05 03/24/17 03:30 Urine Color YELLOW Urine Clarity CLEAR Urine pH 6.0 Urine Specific Bim 1.016 Urine Ketones TRACEmg/dL Urine Nitrite NEGATIVEmg/dL Urine Bilirubin NEGATIVEmg/dL Urine Urobilinogen NEGATIVEmg/dL Urine Leukocyte Esterase TRACELeu/ul Urine Microscopic RBC 0/HPF Urine Microscopic WBC 7/HPF Urine Hemoglobin NEGATIVEmg/dL Urine Glucose NEGATIVEmg/dL Urine Total Protein NEGATIVEmg/dl Bedside Urine pH (LAB) 6.0 Bedside Urine Protein (LAB) Negative Bedside Urine Glucose (UA) Negative Bedside Urine Ketones (LAB) 1+ Bedside Urine Blood Negative Bedside Urine Nitrite (LAB) Negative Bedside Urine Leukocyte Esterase (L Negative White Blood Count 5.610^3/ul Red Blood Count 3.7110^6/ul Hemoglobin 10.9g/dl Hematocrit 35.5% Mean Corpuscular Volume 95.7fl Mean Corpuscular Hemoglobin 29.4pg Mean Corpuscular Hemoglobin Concent 30.7g/dl Red Cell Distribution Width 16.5% Platelet Count 85847^3/UL Mean Platelet Volume 8.6fl Neutrophils % 61.3% Lymphocytes % 28.1% Monocytes % 9.1% Eosinophils % 0.7% Basophils % 0.4% Nucleated Red Blood Cells % 0.0/100WBC Neutrophils # 3.410^3/ul Lymphocytes # 1.610^3/ul Monocytes # 0.510^3/ul Eosinophils # 0.010^3/ul Basophils # 0.010^3/ul Nucleated Red Blood Cells # 0.010^3/ul Prothrombin Time 16.4Sec Prothrombin Time Ratio 1.3 INR International Normalized Ratio 1.31 Sodium Level 141mmol/L Potassium Level 3.5mmol/L Chloride Level 105mmol/L Carbon Dioxide Level 26mmol/L Anion Gap 14 Blood Urea Nitrogen 11mg/dl Creatinine 0.58mg/dl Glucose Level 85mg/dl Calcium Level 8.8mg/dl Total Bilirubin 0.2mg/dl Direct Bilirubin 0.00mg/dl Indirect Bilirubin 0.2mg/dl Aspartate Amino Transf (AST/SGOT) 26IU/L Alanine Aminotransferase (ALT/SGPT) 30IU/L Alkaline Phosphatase 198IU/L Troponin I < 0.012ng/ml Total Protein 7.2g/dl Albumin 3.0g/dl Globulin 4.20g/dl Albumin/Globulin Ratio 0.71 Lipase 96U/L Current Medications Medications (Trade) Dose Ordered Sig/Milton Route PRN Reason Start Time Stop Time Status Last Admin Dose Admin Sodium Chloride (NS) 1,000 ml @ 1,000 mls/hr Q1H STAT IV 03/24/17 02:17 03/24/17 03:16 DC 03/24/17 03:50 Hydromorphone HCl (Dilaudid) 1 mg ONCE STAT IV 03/24/17 02:17 03/24/17 02:19 DC 03/24/17 03:50 Ondansetron HCl (Zofran Inj) 4 mg ONCE STAT IV 03/24/17 02:17 03/24/17 02:19 DC 03/24/17 03:50 Procedures/MDM IV line was established 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 Patient was afebrile I administered 1 L normal saline intravenously, Zofran 4 mg IV, hydromorphone 1 mg IV with good response. EKG performed, read by me: Sinus tachycardia at 100 bpm, normal sinus rhythm, normal axis, no acute ST segment changes, narrow QRS complex, with good R-wave progression in precordial leads. CT scan of the abdomen and pelvis was performed, given the patient's symptoms. No definite bowel obstruction, free air, or abscess. Hiatal hernia and postsurgical changes. On this noncontrast study, it is not completely clear if the intrathoracic loops all represent stomach or gastric pull-up or also a portion of the colon or possibly small bowel. If indicated clinically, study with enteric contrast could be performed. No definite acute abnormality, however. Normal appendix. Hepatic steatosis. Distended gallbladder. Hyperdense left renal cysts and tiny nonobstructing stones.. CBC and electrolytes were normal, liver function tests normal, troponin negative. Urine analysis is concerning for early urinary tract infection so she will be treated with oral antibiotics as an outpatient. Differential diagnoses considered, included but not limited to acute coronary syndrome, pulmonary embolism, aortic dissection, abdominal aortic aneurysm, sepsis, stroke, meningitis, encephalitis, pneumonia, appendicitis, cholecystitis , bowel obstruction, pyelonephritis, nephrolithiasis, cystitis, as well as metabolic, hematologic, and electrolyte abnormalities. As well as abscess, cellulitis, fractures, and dislocations. Patient feels much better at this time, and vital signs are normal, symptoms have improved. I did give strict instructions to return to the ED if symptoms continue or worsen, patient will otherwise follow-up with primary care physician. Patient understood instructions and agreed to plan. Disclaimer: Inadvertent spelling and grammatical errors are likely due to EHR/ dictation software use and do not reflect on the overall quality of patient care. Also, please note that the electronic time recorded on this note does not necessarily reflect the actual time of the patient encounter. Departure Diagnosis: Primary Impression: Saddle embolism of pulmonary artery Chronicity: acute Acute cor pulmonale presence: with acute cor pulmonale Qualified Code: I26.02 - Acute saddle pulmonary embolism with acute cor pulmonale Additional Impressions: UTI (urinary tract infection) Urinary tract infection type: acute cystitis Hematuria presence: without hematuria Qualified Code: N30.00 - Acute cystitis without hematuria Back pain Back pain location: low back pain Chronicity: acute Back pain laterality: bilateral Sciatica presence: without sciatica Qualified Code: M54.5 - Acute bilateral low back pain without sciatica Condition: DELORES Levy MD Mar 24, 2017 03:14
--- NOTE | 2017-03-24 03:32 | RADRPT ---
PROCEDURE: CT of the abdomen and pelvis without contrast CLINICAL INDICATION: Abdominal pain. TECHNIQUE: Spiral CT images through the abdomen and pelvis without the use of oral and without the use of intravenous contrast. The administered radiation dose is CTDI 18.97 and DLP 1070.57. One or more of the following dose reduction techniques were used: automated exposure control, adjustment o f the mA and/or kV according to patient size, or use of iterative reconstruction technique. COMPARISON: 03/10/2017 FINDINGS: The study is limited by lack of intravenous contrast. Lower thorax: Bibasilar atelectasis and moderate hiatal hernia again seen.. Liver: Geographic hepatic steatosis predominately in the left lobe of the liver is again seen.. Biliary: The gallbladder is again noted to be distended.. No biliary ductal dilatation is seen. Pancreas: Atrophic No focal mass or inflammatory process. Spleen: The spleen is unremarkable in appearance Adrenal glands: Unremarkable in appearance. No focal nodule.. Genitourinary: Unremarkable right kidney.. Small hyperdense cysts of the left kidney and nonobstruct ing stones. Tiny calcification adjacent to the right kidney. No hydronephrosis. Gastrointestinal Tract: Postoperative changes are seen from what appears to be prior at least partia l gastrectomy with pull-up procedure. Suture line of the duodenum and jejunum. Colonic diverticulosi s without definite diverticulitis. There is no evidence for small bowel obstruction, free air, or ab scess. It is not completely clear if the intrathoracic bowel loops all represent stomach or of small bowel or colonic loops are also present.. The appendix is unremarkable in appearance. Lymph nodes: No adenopathy is seen... Vascular structures: The aorta and mesenteric vessels are unremarkable.. Peritoneal cavity: Unremarkable mesentery and peritoneum.. No mass, edema, or ascites. Reproductive Organs: Unremarkable in appearance.. Musculoskeletal: Degenerative change of the spine is seen. Focal subcutaneous soft tissue densities are likely due to prior injections. Accentuated lumbar lordosis. IMPRESSION: No definite bowel obstruction, free air, or abscess. Hiatal hernia and postsurgical changes. On this noncontrast study, it is not completely clear if the intrathoracic loops all represent stomach or g astric pull-up or also a portion of the colon or possibly small bowel. If indicated clinically, stud y with enteric contrast could be performed. No definite acute abnormality, however. Normal appendix. Hepatic steatosis. Distended gallbladder. Hyperdense left renal cysts and tiny nonobstructing stones.. RPTAT: HLBE Rosa Almanza, Physician Date Time Electronically viewed and signed by Rosa Almanza, Physician on 03/24/2017 03:32 LE/
[2017-03-24] MEDS ORDERED: NAPR-260 PO (03:57)
[2017-03-24] MEDS ORDERED: CEPH500C PO (04:20)
[2017-03-24 05:19] VITALS: BP 115/62; PULSE 98; RESP 16; TEMP 98.5
[2017-03-24] MEDS ORDERED: OXYC-279 PO (06:13)
== END 2017-03-24 06:23 | disposition home or self-care (01) ==
LOC: E/R 23:47
DX: I26.02 Saddle embolus of pulmonary artery with acute cor pulmonale (principal); N30.00 Acute cystitis without hematuria; I10 Essential (primary) hypertension; E66.9 Obesity, unspecified; E11.9 Type 2 diabetes mellitus without complications; Z79.01 Long term (current) use of anticoagulants; Z68.30 Body mass index [BMI] 30.0-30.9, adult
CPT/HCPCS: 36415; 74176; 80053; 81001; 83690; 84484; 85025; 85610; 93005; 96374; 96375; 99285; J1170; J2405; J7030; P9612; 81003

== ENCOUNTER 2017-06-21 18:58 | Inpatient (IN) | END 2017-06-29 17:19 | disposition home or self-care (01) | DRG 438 ==

== ENCOUNTER 2018-01-18 14:44 | Inpatient (IN) | END 2018-01-20 16:13 | disposition home or self-care (01) | DRG 592 ==

== ENCOUNTER 2018-02-16 14:26 | Inpatient (IN) | END 2018-02-26 18:33 | disposition EXP | DRG 871 ==